=== PATIENT | female | born 1950 | race Caucasian/White ===

== ENCOUNTER 2020-12-25 12:40 | Outpatient (REF) | payer MEDICARE, SELFPAY ==
--- NOTE | ~2020-12-25 | MM_ITS ---
EXAMINATION: MM SCREENING DIGITAL BREAST TOMOSYNTHESIS, BILATERAL CLINICAL INFORMATION: Screening. Asymptomatic. The lifetime risk of breast cancer based on the Tyrer-Cuzick Model is 5.8%. COMPARISON: Mammography: October 12, 2019 and studies dating back to July 14, 2011 TECHNIQUE: Digital breast tomosynthesis is performed in both the craniocaudal and mediolateral oblique views along with computer-aided detection (CAD). Synthesized 2D images are generated from the tomosynthesis. FINDINGS: The breasts are almost entirely fatty (ACR BI-RADS breast composition Category a). There are no significant masses, abnormal calcifications, or other abnormalities. MM/MM tomosynthesis screening BI IMPRESSION: There are no significant changes from prior study. ASSESSMENT: BI-RADS 1: Negative RECOMMENDATION: Routine annual mammography screening. This patient's information was entered into a reminder system with a target due date for their next mammogram.
== END 2020-12-25 12:41 | disposition home or self-care (01) ==
LOC: HO.MAMMO 12:40
PROVIDERS: PCP Internal Medicine; Visit Provider Internal Medicine
DX: Z12.31 Encounter for screening mammogram for malignant neoplasm of breast (principal)
CPT/HCPCS: 77063; 77067

== ENCOUNTER 2021-07-20 09:13 | Outpatient (REF) | payer MEDICARE, SELFPAY ==
[2021-07-20 11:23] LABS: MANUAL DIFF FLAG NO
[2021-07-20 11:37] LABS: Appearance Urine HAZY; Color Urine YELLOW; Glucose Urine UA NEG (NEG); Leukocyte Esterase Urine TRACE (NEG); Nitrite Urine NEG (NEG); Specific Gravity - Urine >= 1.030 (1.005-1.025); UACC Culture Trigger YES; Urine Blood 2+ (NEG); Urine Ketones NEG (NEG); Urine Protein 1+ MG/DL (NEG-TRACE)
[2021-07-20 11:41] LABS: Basophils Percent Auto 0.4 % (0-2); Eosinophils Absolute Auto 0.1 X10*3/uL (0.0-0.4); Imm Gran Abs Auto 0.01 X10*3/uL (0.00-0.03); Imm Gran Pct Auto 0.2 % (0.0-0.4); Lymphocytes Absolute Auto 1.1 X10*3/uL (1.2-4.9); Lymphocytes Percent Auto 23.2 % (20-40); Mean Corpuscular HGB Conc 32.5 g/dl (31.0-35.0); Mean Corpuscular Hemoglobin 28.9 pg (27.0-33.0); Mean Corpuscular Volume 88.9 fL (80-98); Mean Platelet Volume 9.5 fL (9.4-12.3); Monocytes Absolute Auto 0.2 X10*3/uL (0.1-1.2); Monocytes Percent Auto 5.3 % (2-11); Neutrophils Absolute Auto 3.1 X10*3/uL (2.0-8.3); Neutrophils Percent Auto 68.9 % (45-73); Platelet Count 147 X10*3/uL (160-400); Red Cell Distribution Width 12.6 % (11.0-16.0); White Blood Count 4.6 X10*3/uL (4.8-10.8)
[2021-07-20 12:51] LABS: WBC Urine 0-2 /HPF (0-4)
[2021-07-20 12:59] LABS: Bacteria Urine 2+ /LPF; Squamous Epithelial Cell Urine 1+ /LPF
[2021-07-20 14:23] LABS: Alanine Aminotransferase 19 U/L (0-31); Albumin Level 4.6 g/dL (3.5-5.0); Alkaline Phosphatase 74 U/L (39-117); Anion Gap 13 (12-20); Aspartate Amino Transferase 21 U/L (5-31); Bilirubin Total 0.3 mg/dL (0.0-1.0); Blood Urea Nitrogen 17 mg/dL (9-16); Calcium 9.3 mg/dL (8.4-10.2); Carbon Dioxide 27 mmol/L (22-29); Chloride 107 mmol/L (96-108); Cholesterol 155 mg/dL; Estimated Glomerular Filt Rate 53; Glucose Fasting 103 mg/dL (60-99); HDL Cholesterol 51 mg/dL; LDL Cholesterol Calculated 74 mg/dl; Potassium 4.6 mmol/L (3.3-5.1); Sodium 142 mmol/L (135-145); Total Protein 6.8 g/dL (6.5-8.0); Triglycerides 152 mg/dL
[2021-07-20 14:27] LABS: TSH reflex Free T4 2.14 uIU/mL (0.32-4.0)
== END 2021-07-20 09:14 | disposition home or self-care (01) ==
LOC: HO.HMGCLDS 09:13
PROVIDERS: PCP Internal Medicine; Visit Provider Internal Medicine
DX: E78.00 Pure hypercholesterolemia, unspecified (principal); I10 Essential (primary) hypertension
CPT/HCPCS: 36415; 80053; 80061; 81001; 84443; 85025; 87086

== ENCOUNTER 2021-12-30 13:45 | Outpatient (REF) | payer MEDICARE, SELFPAY ==
--- NOTE | ~2021-12-30 | MM_ITS ---
EXAMINATION: MM SCREENING DIGITAL BREAST TOMOSYNTHESIS, BILATERAL CLINICAL INFORMATION: Screening. Asymptomatic. The lifetime risk of breast cancer based on the Tyrer-Cuzick Model is 3%. COMPARISON: Mammography: 12/25/2020, 10/12/2019, 10/06/2018 TECHNIQUE: Digital breast tomosynthesis is performed in both the craniocaudal and mediolateral oblique views along with computer-aided detection (CAD). Synthesized 2D images are generated from the tomosynthesis. Additional left MLO view is provided. FINDINGS: There are scattered areas of fibroglandular density (ACR BI-RADS breast composition Category b). There are no significant masses, abnormal calcifications, or other abnormalities. Parenchymal pattern is similar to prior studies. The axilla and skin contours are unremarkable. There are no significant changes. MM/MM tomosynthesis screening BI IMPRESSION: No mammographic evidence of malignancy. ASSESSMENT: BI-RADS 1: Negative RECOMMENDATION: Routine annual mammography screening. This patient's information was entered into a reminder system with a target due date for their next mammogram.
== END 2021-12-30 13:46 | disposition home or self-care (01) ==
LOC: HO.MAMMO 13:45
PROVIDERS: PCP Internal Medicine; Visit Provider Internal Medicine
DX: Z12.31 Encounter for screening mammogram for malignant neoplasm of breast (principal)
CPT/HCPCS: 77063; 77067

== ENCOUNTER 2022-01-26 09:14 | Outpatient (REF) | payer MEDICARE, SELFPAY ==
[2022-01-26 11:34] LABS: Appearance Urine CLEAR; Color Urine YELLOW; Glucose Urine UA NEG (NEG); Leukocyte Esterase Urine NEG (NEG); Nitrite Urine NEG (NEG); PH 5.5 (5.0-8.0); Specific Gravity - Urine 1.025 (1.005-1.025); UACC Culture Trigger NO; Urine Blood 3+ (NEG); Urine Ketones NEG (NEG); Urine Protein TRACE MG/DL (NEG-TRACE)
[2022-01-26 11:35] LABS: MANUAL DIFF FLAG NO
[2022-01-26 11:42] LABS: Basophils Percent Auto 0.3 % (0-2); Eosinophils Absolute Auto 0.1 X10*3/uL (0.0-0.4); Eosinophils Percent Auto 1.5 % (0-4); Hematocrit 37.8 % (37.0-47.0); Hemoglobin 12.6 g/dl (12.0-16.0); Lymphocytes Absolute Auto 0.9 X10*3/uL (1.2-4.9); Mean Corpuscular HGB Conc 33.3 g/dl (31.0-35.0); Mean Corpuscular Hemoglobin 29.2 pg (27.0-33.0); Mean Corpuscular Volume 87.7 fL (80.0-98.0); Mean Platelet Volume 9.3 fL (9.4-12.3); Monocytes Absolute Auto 0.3 X10*3/uL (0.1-1.2); Monocytes Percent Auto 6.4 % (2-11); Neutrophils Absolute Auto 2.7 x10*3/uL (2.0-8.3); Neutrophils Percent Auto 68.8 % (45-73); Platelet Count 130 X10*3/uL (160-400); Red Blood Count 4.31 X10*6/uL (4.20-5.50); White Blood Count 3.9 X10*3/uL (4.8-10.8)
[2022-01-26 11:44] LABS: Granular Casts Urine 0-2 /LPF; Squamous Epithelial Cell Urine 2+ /LPF; WBC Urine 0 /HPF (0-4)
[2022-01-26 12:13] LABS: Alanine Aminotransferase 19 U/L (0-31); Albumin Level 4.5 g/dL (3.5-5.0); Alkaline Phosphatase 66 U/L (39-117); Anion Gap 11 (12-20); Aspartate Amino Transferase 17 U/L (5-31); Bilirubin Total 0.4 mg/dL (0.0-1.0); Blood Urea Nitrogen 15 mg/dL (9-16); Calcium 9.1 mg/dL (8.4-10.2); Carbon Dioxide 29 mmol/L (22-29); Chloride 108 mmol/L (96-108); Cholesterol 150 mg/dL; Estimated Glomerular Filt Rate 53; Glucose Fasting 102 mg/dL (60-99); HDL Cholesterol 47 mg/dL; LDL Cholesterol Calculated 76 mg/dl; Potassium 4.4 mmol/L (3.3-5.1); Sodium 144 mmol/L (135-145); Total Protein 6.9 g/dL (6.5-8.0); Triglycerides 137 mg/dL
[2022-01-26 12:16] LABS: TSH reflex Free T4 2.39 uIU/mL (0.32-4.0); Vitamin D 25-OH Total 45.7 ng/mL (>30)
== END 2022-01-26 09:15 | disposition home or self-care (01) ==
LOC: HO.HMGCLDS 09:14
PROVIDERS: Visit Provider Internal Medicine
DX: I10 Essential (primary) hypertension (principal); E78.00 Pure hypercholesterolemia, unspecified; E55.9 Vitamin D deficiency, unspecified
CPT/HCPCS: 36415; 80053; 80061; 81001; 82306; 84443; 85025

== ENCOUNTER 2023-01-29 11:55 | Outpatient (REF) | payer MEDICARE, SELFPAY ==
--- NOTE | ~2023-01-29 | XR_ITS ---
EXAMINATION: XR LUMBOSACRAL SPINE WITH OBLIQUES CLINICAL INFORMATION: Low back pain COMPARISON: None available. TECHNIQUE: 5 views lumbar spine FINDINGS: Vertebral body alignment is maintained. Vertebral body heights are maintained. No evidence of acute compression deformity. Moderate-severe L5-S1 disc degeneration with disc height loss, endplate osteophytes. There is endplate spurring at multiple levels in the lumbar spine otherwise. Facet degeneration in the lower lumbar spine. SI joints intact. Visualized pelvic bones intact. Vascular calcification noted. No suspicious soft tissue calcification seen. XR/XR lumbar spine 4V min IMPRESSION: *No evidence of acute fracture or malalignment. *Lumbar spondylosis. L5-S1 moderate-severe disc degeneration.
== END 2023-01-29 11:56 | disposition home or self-care (01) ==
LOC: HO.HMGCX 11:55
PROVIDERS: PCP Internal Medicine; Visit Provider Physician Assistant Medical
DX: M54.50 Low back pain, unspecified (principal)
CPT/HCPCS: 72110

== ENCOUNTER 2023-02-22 10:50 | Outpatient (REF) | payer MEDICARE, SELFPAY ==
--- NOTE | ~2023-02-22 | MM_ITS ---
EXAMINATION: MM SCREENING DIGITAL BREAST TOMOSYNTHESIS, BILATERAL CLINICAL INFORMATION: Screening. Asymptomatic. The lifetime risk of breast cancer based on the Tyrer-Cuzick Model is 2.9%. COMPARISON: Mammography: December 30, 2021 and studies dating back to August 25, 2015 TECHNIQUE: Digital breast tomosynthesis is performed in both the craniocaudal and mediolateral oblique views along with computer-aided detection (CAD). Synthesized 2D images are generated from the tomosynthesis. FINDINGS: There are scattered areas of fibroglandular density (ACR BI-RADS breast composition Category b). There are no significant masses, abnormal calcifications, or other abnormalities. MM/MM tomosynthesis screening BI IMPRESSION: No significant changes from prior exam. ASSESSMENT: BI-RADS 1: Negative RECOMMENDATION: Routine annual mammography screening. This patient's information was entered into a reminder system with a target due date for their next mammogram.
== END 2023-02-22 10:51 | disposition home or self-care (01) ==
LOC: HO.MAMMO 10:50
PROVIDERS: PCP Internal Medicine; Visit Provider Internal Medicine
DX: Z12.31 Encounter for screening mammogram for malignant neoplasm of breast (principal)
CPT/HCPCS: 77063; 77067

== ENCOUNTER → 2023-03-08 14:01 | Outpatient (BNVA) | payer MEDICARE, SELFPAY | PROVIDERS: PCP Internal Medicine; Visit Provider Psychiatry & Neurology Psychiatry | DX: F33.9 Major depressive disorder, recurrent, unspecified (principal); I21.3 ST elevation (STEMI) myocardial infarction of unspecified site; E78.00 Pure hypercholesterolemia, unspecified | CPT/HCPCS: 90833; 99212 ==

== ENCOUNTER 2023-03-15 14:15 | Outpatient (AMB) | payer MEDICARE, SELFPAY ==
--- NOTE | 2023-03-15 14:17 | MHC.PC.OV ---
Vital Signs 03/15/23 14:21 Height 5 ft 3 in Weight 172 lb 8 oz BMI 30.6 BP 142/80 H Blood Pressure Location Lt brachial Position Sitting Pulse 78 Pulse Source Pulse Oximeter Pulse Oximetry (%) 97 Oxygen Delivery Method Room Air Intake Visit Reasons: HTN, CAD, hyperlipidemia, OA Intake Note: Patient is here to follow up HTN, CAD, hyperlipidemia, and OA. 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 Accompanied by: Self / Same As Patient Allergies Sulfa (Sulfonamide Antibiotics) [SULFA(SULFONAMIDE ANTIBIOTICS)] Allergy (Intermediate, Verified 07/19/24 11:34) RASH methazolamide [From NEPTAZANE] Allergy (Unknown, Verified 07/19/24 11:34) RASH Neptazane Allergy (Unknown, Uncoded 07/19/24 11:34) unknown Medication List - Last Reconciled 03/15/23 by Wai Ferrell MD aspirin (Adult Aspirin Regimen) 81 mg PO DAILY buspirone 15 mg PO BID 90 days clopidogrel 75 mg PO DAILY cyclobenzaprine 5 mg PO TID PRN lorazepam 0.5 mg PO BEDTIME PRN losartan 50 mg PO DAILY metoprolol succinate ER 25 mg PO DAILY omeprazole 20 mg PO DAILY oxycodone-acetaminophen 5-325 mg (Percocet) 1 tab PO .q12 PRN 28 days rosuvastatin 40 mg PO DAILY sertraline 200 mg (2 x 100 mg) PO DAILY 90 days trazodone 25 - 50 mg (0.5 - 1 x 50 mg) PO BEDTIME PRN 30 days Tobacco use date assessed: 03/15/23 Fall risk assessment: 1 Fall in past year HPI HTN, CAD, hyperlipidemia, OA HPI Details Patient comes in today for her follow up visit - I have not seen her in over a year (last visit was in December 2021) States that she had her 2nd bout with PERLA back in May 2022 and had to cancel her appointment then Relates also that she went to the walk-in clinic at [facility] last month for increased low back pain She was sent for new x-rays of her lower back and was given Rx for some Cyclobenzaprine 5 mg, which she states helped somewhat States that her low back pain has calmed down a lot since and she just needs her Percocet Rx refilled today She denies any headaches or dizziness Denies any chest pains, no SOB No nausea/vomiting, no abdominal pain No change in bowel habits noted She has not had any follow up labs done in over a year now [facility] Medical History (Updated 07/19/24 @ 14:36 by Wai Ferrell MD) Generalized anxiety disorder Ischemic cardiomyopathy GERD without esophagitis Obesity (BMI 30-39.9) Depression Anxiety Insomnia Primary osteoarthritis of right shoulder Benign essential hypertension Coronary artery disease Osteoarthritis of right shoulder STEMI (ST elevation myocardial infarction) Pure hypercholesterolemia Surgical History (Updated 07/19/24 @ 12:31 by Wai Ferrell MD) History of hysterectomy for malignancy S/P coronary artery stent placement (~07/2016) S/P excision of lipoma (~2000) S/P medial meniscectomy of left knee (~09/2012) Social History Housing: House Alcohol intake: never Patient Tobacco Use Status: Never used Tobacco e-Cigarette/Vaping Use: Never Used Second Hand Smoke Exposure: Yes service: No Current occupational status: retired Cognitive needs: No Hearing needs: No Vision needs: No Questionnaire PHQ-9 Over the last 2 weeks, how often have you been bothered by any of the following problems? 1. Little interest or pleasure in doing things: not at all 2. Feeling down, depressed, or hopeless: not at all 3. Trouble falling or staying asleep, or sleeping too much: not at all 4. Feeling tired or having little energy: not at all 5. Poor appetite or overeating: not at all 6. Feeling bad about yourself - or that you are a failure or have let yourself or your family down: not at all 7. Trouble concentrating on things, such as reading the newspaper or watching television: not at all 8. Moving or speaking so slowly that other people could have noticed. Or the opposite - being so fidgety or restless that you have been moving around a lot more than usual: not at all 9. Thoughts that you would be better off or of hurting yourself in some way: not at all Total score: 0 Depression Screening Interpretation: Positive Depression Screening Follow-up: Existing condition and In treatment 83395 - PHQ-9 Billing: Yes Source: Developed by Drs. Ike Toledo, Colette Gutierrez, Alex Ingram and colleagues, with an educational gumaro from [employer]. Thrive Questionnaire Date Thrive assessed: 03/15/23 I am a: Patient What is your living situation today?: I have a steady place to live Within the past 12 months, did the food you bought not last and you didn't have the money to get more?: Never true Within the past 12 months, did you worry whether your food would run out before you got money to buy more?: Never true Do you have trouble paying for medicines?: No Do you have trouble getting transportation to medical appointments?: No Do you have trouble paying your heating and electricity bill?: No Do you have trouble taking care of your child, family member or friend?: No Do you have trouble with day-to-day activities such as bathing, preparing meals, shopping, managing finances, etc.?: No Are you currently unemployed and looking for a job?: No Are you interested in more education?: No Currently or been in a relationship where the following occur: no concerns reported AUDIT C Alcohol Use Questionnaire (AUDIT-C) 1. How often do you have a drink containing alcohol?: Never 3. How often do you have six or more drinks on one occasion?: Never Total Score: 0 Score Reviewed/Action Taken: Yes MAGUI-7 AMB Questionnaire MAGUI-7 Date MAGUI - 7 assessed: 03/15/23 Feeling nervous, anxious, or on edge: 0 = Not at all Not being able to stop or control worryin = Not at all Worrying too much about different things: 0 = Not at all Trouble relaxin = Not at all Being so restless that it is hard to sit still: 0 = Not at all Becoming easily annoyed or irritable: 0 = Not at all Feeling afraid as if something awful might happen: 0 = Not at all Total MAGUI-7 score (0-4 normal; 5-9 mild; 10-14 moderate; 15-21 severe): 0 Source: Developed by Drs. Ike Toledo, Colette Gutierrez, Alex Ingram and colleagues, with an educational gumaro from [employer]. Review of Systems Const Denies chills, Reports fatigue, Denies fever(s) and Denies headache(s) ENT Denies headache(s), Denies sinus pain and Denies sore throat Card Denies chest pain, Denies palpitations and Denies dyspnea Resp Denies cough and Denies dyspnea GI Denies abdominal pain, Denies constipation, Denies heartburn, Denies diarrhea, Denies nausea and Denies vomiting Denies difficulty voiding, Reports nocturia (- states that she drinks a lot of water) and Denies dysuria Musc Reports back pain (lower back - chronic) and Denies arthralgias Neuro Denies headache(s) Endo Reports fatigue and Denies palpitations Physical exam (Primary Care) Vital Signs: Last Vital Signs Pulse 78 03/15/23 14:21 BP 142/80 H 03/15/23 14:21 Pulse Ox 97 03/15/23 14:21 Oxygen Delivery Method Room Air 03/15/23 14:21 BMI result Body Mass Index 30.6 Tobacco/Smoking Status: Tobacco use Status Tobacco use date assessed 03/15/23 03/15/23 14:20 Patient Tobacco Use Status Never used Tobacco 03/15/23 14:17 e-Cigarette/Vaping Use Never Used 03/15/23 14:20 PHQ-9: PHQ-9 Score PHQ-9: Total score 0 07/04/24 03:51 Depression Screening Interpretation: Positive Depression Screening Follow-up: Existing condition and In treatment Thrive Assessment: Date of Thrive Assessment Date Thrive assessed 03/15/23 03/15/23 14:20 Currently or been in a relationship where the following occur: no concerns reported Const General: no acute distress and alert HENMT Ears: TM's normal bilaterally Throat: Yes posterior oropharynx normal and Yes tonsils normal (no TP congestion noted) Neck Neck: Yes no lymphadenopathy and Yes supple Resp Auscultation: clear to auscultation bilaterally, no rales and no wheezes Cardio Rate: regular rate Rhythm: regular rhythm Heart sounds: Murmur heart sound present systolic soft, II/ and at the left sternal border GI Palpation (GI): Soft to palpation, nontender and No hepatosplenomegaly present Back/Spine/Pelvis Thoracic/Lumbar Spine: lumbar spinal tenderness Extrem General: Yes no clubbing, cyanosis or edema Assessment and Plan Assessment & Plan (1) Coronary artery disease: Comment: S/P STEMI with stenting in July 2016 Code(s): I25.10 - Atherosclerotic heart disease of [place] coronary artery without angina pectoris Qualifiers: Associated angina: without angina Coronary Disease-Associated Artery/Lesion type: [place] artery [place] vs. transplanted heart: [place] heart Qualified Code(s): I25.10 - Atherosclerotic heart disease of [place] coronary artery without angina pectoris Plan: Patient remains asymptomatic Continue Aspirin 81 mg QD and Clopidogrel 75 mg QD Follow up with cardiology as scheduled (2) Pure hypercholesterolemia: Code(s): E78.00 - Pure hypercholesterolemia, unspecified Plan: She has not had any follow up labs done in over a year now - will send her for some labs TERESA Reinforced low cholesterol diet Continue Rosuvastatin 40 mg QD Will recheck labs again in 6 months for follow up (3) Benign essential hypertension: Code(s): I10 - Essential (primary) hypertension Plan: Reinforced low sodium diet - goal is systolic BP of at least 130 mm or less Continue Metoprolol ER 25 mg QD and Losartan 50 mg QD (4) GERD without esophagitis: Code(s): K21.9 - Gastro-esophageal reflux disease without esophagitis Plan: Dietary restrictions reinforced Continue Omeprazole 20 mg QD (5) Primary osteoarthritis of right shoulder: Code(s): M19.011 - Primary osteoarthritis, right shoulder Plan: Continue Percocet 5-325 mg 1 tablet every 12 hours as needed for pain - Rx refilled (6) Lumbar degenerative disc disease: Code(s): M51.36 - Other intervertebral disc degeneration, lumbar region Plan: Patient is advised that her lumbar spine x-rays done last month revealed (+) degenerative changes in her lumbar spine - (+) lumbar spondylosis, with moderate-severe disc degeneration at L5-S1 Reinforced activity and weight-lifting restrictions to avoid aggravating her lower back Advised that her current pain med (Percocet) should also help with her low back pain when needed (7) Insomnia: Code(s): G47.00 - Insomnia, unspecified Qualifiers: Insomnia type: unspecified Qualified Code(s): G47.00 - Insomnia, unspecified Plan: Sleep hygiene reinforced Continue Trazodone 50 mg 1/2 to 1 tablet Q HS PRN (8) Anxiety: Code(s): F41.9 - Anxiety disorder, unspecified Plan: Continue Buspirone 15 mg BID and Lorazepam 0.5 mg Q HS PRN (9) Depression: Comment: sees Dr. Bandar Calderon Code(s): F32.9 - Major depressive disorder, single episode, unspecified Qualifiers: Depression Type: major depressive disorder Major depression recurrence: recurrent Active/Remission status: currently active Major depression episode severity: unspecified Qualified Code(s): F33.9 - Major depressive disorder, recurrent, unspecified Plan: Continue Sertraline 100 mg QD Follow up with psychiatry as scheduled (10) Obesity (BMI 30-39.9): Code(s): E66.9 - Obesity, unspecified Plan: Reinforced diet/exercise as tolerated/lose weight Plan Follow up in 6 months Orders: Orders Complete Blood Count Auto Diff 03/15/23 I10 - Essential (primary) hypertension Comprehensive [place]. Panel Fast 6 Months E78.00 - Pure hypercholesterolemia, unspecified Comprehensive [place]. Panel Fast 03/15/23 E78.00 - Pure hypercholesterolemia, unspecified Lipid Panel 03/15/23 E78.00 - Pure hypercholesterolemia, unspecified TSH reflex Free T4 03/15/23 E78.00 - Pure hypercholesterolemia, unspecified UA CC w/rflx Micro + Cult 03/15/23 R30.0 - Dysuria Vitamin D 25-OH Total 03/15/23 E55.9 - Vitamin D deficiency, unspecified Lipid Panel 6 Months E78.00 - Pure hypercholesterolemia, unspecified Complete Blood Count Auto Diff 6 Months I10 - Essential (primary) hypertension Medications: Refilled oxycodone-acetaminophen 5-325 mg (Percocet) 1 tab PO .q12 PRN 56 tabs 0RF pain 28 days M19.011 - Primary osteoarthritis, right shoulder Coding Level of Care Code Est Pt Level 4 (74269) Diagnoses Coronary artery disease involving [place] coronary artery of [place] heart without angina pectoris I25.10 Associated angina: without angina Coronary Disease-Associated Artery/Lesion type: [place] artery [place] vs. transplanted heart: [place] heart Pure hypercholesterolemia E78.00 Benign essential hypertension I10 GERD without esophagitis K21.9 Primary osteoarthritis of right shoulder M19.011 Lumbar degenerative disc disease M51.36 Insomnia, unspecified type G47.00 Insomnia type: unspecified Anxiety F41.9 Episode of recurrent major depressive disorder, unspecified depression episode severity F33.9 Depression Type: major depressive disorder Major depression recurrence: recurrent Active/Remission status: currently active Major depression episode severity: unspecified Obesity (BMI 30-39.9) E66.9
[2023-03-15 14:21] VITALS: BP 142/80; PULSE 78; O2SAT 97; BMI 30.6
== END 2023-03-15 15:26 | disposition home or self-care (01) ==
LOC: HO.HMGH 14:15
PROVIDERS: PCP Internal Medicine; Visit Provider Internal Medicine
DX: I25.10 Atherosclerotic heart disease of native coronary artery without angina pectoris (principal); E78.00 Pure hypercholesterolemia, unspecified; I10 Essential (primary) hypertension; K21.9 Gastro-esophageal reflux disease without esophagitis; M19.011 Primary osteoarthritis, right shoulder; M51.36 Other intervertebral disc degeneration, lumbar region; G47.00 Insomnia, unspecified; F41.9 Anxiety disorder, unspecified
CPT/HCPCS: 99499

== ENCOUNTER 2023-09-12 11:04 | Outpatient (AMB) | payer MEDICARE, SELFPAY ==
--- NOTE | 2023-09-12 11:05 | A.OFFPC_ITS ---
Intake Visit Reasons: Flu Shot Intake Note: Flu Vaccine given today in office. 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 Accompanied by: Self / Same As Patient Allergies Sulfa (Sulfonamide Antibiotics) [SULFA(SULFONAMIDE ANTIBIOTICS)] Allergy ( Intermediate, Verified 03/06/24 14:51) RASH methazolamide [From NEPTAZANE] Allergy (Unknown, Verified 03/06/24 14:51) RASH Neptazane Allergy (Unknown, Uncoded 03/06/24 14:51) unknown Tobacco use date assessed: 09/12/23 Fall risk assessment: No Falls in past year Last assessed Fall Risk: 09/12/23 Dental Screening Dental Screen Date: 09/12/23 Did you have a dental visit in the last 12 months?: Yes Did you have a dental problem in the last 6 months where you did not have access to dental care?: No Was dental information given to patient?: Patient has dentist HPI Flu Shot HPI Details Patient comes in today mainly to get her flu shot / nurse visit [facility] Medical History Anxiety Benign essential hypertension Coronary artery disease Depression GERD without esophagitis Insomnia Ischemic cardiomyopathy Obesity (BMI 30-39.9) Osteoarthritis of right shoulder Primary osteoarthritis of right shoulder Pure hypercholesterolemia STEMI (ST elevation myocardial infarction) Surgical History S/P coronary artery stent placement (~07/2016) S/P excision of lipoma (~2000) S/P medial meniscectomy of left knee (~09/2012) Social History Housing: House Alcohol intake: never Patient Tobacco Use Status: Never used Tobacco e-Cigarette/Vaping Use: Never Used Second Hand Smoke Exposure: Yes service: No Current occupational status: retired Cognitive needs: No Hearing needs: No Vision needs: No Questionnaire PHQ-9 Over the last 2 weeks, how often have you been bothered by any of the following problems? 1. Little interest or pleasure in doing things: not at all 2. Feeling down, depressed, or hopeless: not at all 3. Trouble falling or staying asleep, or sleeping too much: not at all 4. Feeling tired or having little energy: not at all 5. Poor appetite or overeating: not at all 6. Feeling bad about yourself - or that you are a failure or have let yourself or your family down: not at all 7. Trouble concentrating on things, such as reading the newspaper or watching television: not at all 8. Moving or speaking so slowly that other people could have noticed. Or the opposite - being so fidgety or restless that you have been moving around a lot more than usual: not at all 9. Thoughts that you would be better off or of hurting yourself in some way: not at all Total score: 0 Depression Screening Interpretation: Positive Depression Screening Follow-up: Existing condition and In treatment Depression Screening Done: Yes 43294 - PHQ-9 Billing: Yes Source: Developed by Drs. Ike Toledo, Colette Gutierrez, Alex Ingram and colleagues, with an educational gumaro from [employer]. Thrive Questionnaire Date Thrive assessed: 09/12/23 I am a: Patient What is your living situation today?: I have a steady place to live Within the past 12 months, did the food you bought not last and you didn't have the money to get more?: Never true Within the past 12 months, did you worry whether your food would run out before you got money to buy more?: Never true Do you have trouble paying for medicines?: No Do you have trouble getting transportation to medical appointments?: No Do you have trouble paying your heating and electricity bill?: No Do you have trouble taking care of your child, family member or friend?: No Do you have trouble with day-to-day activities such as bathing, preparing meals, shopping, managing finances, etc.?: No Are you currently unemployed and looking for a job?: No Are you interested in more education?: No Please select the resources that you would like help with: None Currently or been in a relationship where the following occur: no concerns reported AUDIT C Alcohol Use Questionnaire (AUDIT-C) 1. How often do you have a drink containing alcohol?: Never 3. How often do you have six or more drinks on one occasion?: Never Total Score: 0 Score Reviewed/Action Taken: Yes MAGUI-7 AMB Questionnaire MAGUI-7 Date MAGUI - 7 assessed: 09/12/23 Feeling nervous, anxious, or on edge: 0 = Not at all Not being able to stop or control worryin = Not at all Worrying too much about different things: 0 = Not at all Trouble relaxin = Not at all Being so restless that it is hard to sit still: 0 = Not at all Becoming easily annoyed or irritable: 0 = Not at all Feeling afraid as if something awful might happen: 0 = Not at all Total MAGUI-7 score (0-4 normal; 5-9 mild; 10-14 moderate; 15-21 severe): 0 Source: Developed by Drs. Ike Toledo, Colette Gutierrez, Alex Ingram and colleagues, with an educational gumaro from [employer]. Physical exam (Primary Care) Tobacco/Smoking Status: Tobacco use Status Tobacco use date assessed 09/12/23 09/12/23 11:06 Patient Tobacco Use Status Never used Tobacco 09/12/23 11:06 e-Cigarette/Vaping Use Never Used 09/12/23 11:06 PHQ-9: PHQ-9 Score PHQ-9: Total score 0 09/12/23 11:13 Depression Screening Interpretation: Positive Depression Screening Follow-up: Existing condition and In treatment Thrive Assessment: Date of Thrive Assessment Date Thrive assessed 09/12/23 09/12/23 11:06 Currently or been in a relationship where the following occur: no concerns reported Office Procedures Flu Questionnaire Does the patient have a severe egg allergy?: No Does the patient have severe life threatening allergies?: No Does the patient have a fever or illness today?: No Has the patient ever had Guillain-[place] Syndrome?: No Has the patient ever had any past reaction to a flu shot?: No Immunizations flu vacc [id number] 6mos up(PF) 60 mcg(15 mcgx4)/0.5 mL IM syringe Performing Provider: Wai Ferrell MD [facility] Administered by: DEVAUGHN Mei on 09/12/23 11:07 Dose Route Admin Location Dispensed Lot Number Expiration Date NDC Barking Machine Feeder 0.5 mL IM Left Deltoid 0.5 mL [id number] 04/29/24 [id number] [employer] VIS Given Date VIS Provided VIS Publication Date 09/12/23 Single Vaccine 21 Eligibility Eligibility Date Funding Source Not [facility] Eligible 09/12/23 Private Assessment and Plan Assessment & Plan Orders: Orders Influenza [id number] Immunization 09/12/23 Z23 - Encounter for immunization Coding Level of Care Code Procedure Only
== END 2023-09-12 13:05 | disposition home or self-care (01) ==
LOC: HO.HMGH 11:04
PROVIDERS: PCP Internal Medicine; Visit Provider Internal Medicine
DX: Z23 Encounter for immunization (principal)
CPT/HCPCS: 90471; 90686

== ENCOUNTER 2024-02-28 14:25 | Outpatient (REF) | payer MEDICARE, SELFPAY ==
--- NOTE | ~2024-02-28 | US_ITS ---
EXAMINATION: US PELVIS CLINICAL INFORMATION: Postmenopausal bleeding. COMPARISON: None available. TECHNIQUE: Ultrasound of the pelvis is performed using both transabdominal and transvaginal transducers along with Doppler. Transvaginal imaging is performed due to inadequate visualization transabdominally. FINDINGS: Uterus: The uterus measures 6.3 x 2.9 x 4.3 cm. There is focal abnormal thickening of the endometrium in the fundus measuring 7 mm. There is a 9 mm well-circumscribed avascular hypoechoic lesion in the right lower uterine segment which could be a small fibroid. Adnexa: The right ovary measures 2.2 x 1.1 x 1.2 cm, volume 2 mL. The right ovary appears normal. The left ovary is not seen. No free fluid. US/US pelvic and transvaginal IMPRESSION: Focal abnormal thickening of the fundal endometrium measuring 7 mm which may represent a polyp. Recommend gynecology referral for endometrial biopsy. 9 mm lesion in the right lower uterine fundus may represent a small fibroid.
== END 2024-02-28 14:26 | disposition home or self-care (01) ==
LOC: HO.US 14:25
PROVIDERS: PCP Internal Medicine; Visit Provider Internal Medicine
DX: N95.0 Postmenopausal bleeding (principal)
CPT/HCPCS: 76830; 76856

== ENCOUNTER 2024-03-06 14:50 | Outpatient (AMB) | payer MEDICARE, SELFPAY ==
[2024-03-06 14:51] VITALS: BP 130/62; PULSE 65; O2SAT 97; BMI 30.8
--- NOTE | 2024-03-06 14:51 | MHC.PC.OV ---
Vital Signs 03/06/24 14:51 Height 5 ft 3 in Weight 174 lb BMI 30.8 BP 130/62 Blood Pressure Location Lt brachial Position Sitting Pulse 65 Pulse Source Pulse Oximeter Pulse Oximetry (%) 97 Oxygen Delivery Method Room Air Intake Visit Reasons: CAD, hyperlipidemia, HTN, lumbar DDD Intake Note: Patient is here to follow up on CAD, Hyperlipidemia, HTN, lumbar DDD Branch Operations Manager Required: No Allergies Sulfa (Sulfonamide Antibiotics) [SULFA(SULFONAMIDE ANTIBIOTICS)] Allergy (Intermediate, Verified 03/06/24 15:25) RASH methazolamide [From NEPTAZANE] Allergy (Unknown, Verified 03/06/24 15:25) RASH Neptazane Allergy (Unknown, Uncoded 03/06/24 15:25) unknown Medication List - Last Reconciled 03/06/24 by Wai Ferrell MD aspirin (Adult Aspirin Regimen) 81 mg PO DAILY buspirone 15 mg PO BID 90 days clopidogrel 75 mg PO DAILY cyclobenzaprine 5 mg PO TID PRN lorazepam 0.5 mg PO BEDTIME PRN losartan 50 mg PO DAILY metoprolol succinate ER 25 mg PO DAILY omeprazole 20 mg PO DAILY oxycodone-acetaminophen 5-325 mg (Percocet) 1 tab PO Q12H PRN 28 days rosuvastatin 40 mg PO DAILY sertraline 200 mg (2 x 100 mg) PO DAILY 90 days trazodone 25 - 50 mg (0.5 - 1 x 50 mg) PO BEDTIME PRN 30 days Tobacco use date assessed: 03/06/24 Fall risk assessment: No Falls in past year Last assessed Fall Risk: 03/06/24 Dental Screening Dental Screen Date: 09/12/23 HPI CAD, hyperlipidemia, HTN, lumbar DDD HPI Details Patient comes in today for her follow up visit - was last seen in February 2023 She has not had any follow up labs done since December 2021 States that she is still feeling sad and depressed often, which started when her at the hospital a couple of months ago She called up a couple of weeks ago complaining of some vaginal bleeding and was sent for pelvic US for further evaluation States that she had this done last week and would like to know how her results came out States that she currently just has a mild brownish discharge and no longer has any vaginal bleeding She denies any fever, headaches or dizziness Denies any chest pains, no SOB No nausea/vomiting, no abdominal pain No change in bowel habits noted States that her low back pain and joint pains remain adequately controlled on her current Rx [facility] Medical History Anxiety Benign essential hypertension Coronary artery disease Depression GERD without esophagitis Insomnia Ischemic cardiomyopathy Obesity (BMI 30-39.9) Osteoarthritis of right shoulder Primary osteoarthritis of right shoulder Pure hypercholesterolemia STEMI (ST elevation myocardial infarction) Surgical History S/P coronary artery stent placement (~07/2016) S/P excision of lipoma (~2000) S/P medial meniscectomy of left knee (~09/2012) Social History Housing: House Alcohol intake: never Patient Tobacco Use Status: Never used Tobacco e-Cigarette/Vaping Use: Never Used Second Hand Smoke Exposure: Yes service: No Current occupational status: retired Cognitive needs: No Hearing needs: No Vision needs: No Questionnaire PHQ-9 Over the last 2 weeks, how often have you been bothered by any of the following problems? 1. Little interest or pleasure in doing things: not at all 2. Feeling down, depressed, or hopeless: not at all 3. Trouble falling or staying asleep, or sleeping too much: not at all 4. Feeling tired or having little energy: not at all 5. Poor appetite or overeating: not at all 6. Feeling bad about yourself - or that you are a failure or have let yourself or your family down: not at all 7. Trouble concentrating on things, such as reading the newspaper or watching television: not at all 8. Moving or speaking so slowly that other people could have noticed. Or the opposite - being so fidgety or restless that you have been moving around a lot more than usual: not at all 9. Thoughts that you would be better off or of hurting yourself in some way: not at all Total score: 0 Depression Screening Interpretation: Positive Depression Screening Follow-up: Existing condition and In treatment Depression Screening Done: Yes 23781 - PHQ-9 Billing: Yes Source: Developed by Drs. Ike Toledo, Colette Gutierrez, Alex Ingram and colleagues, with an educational gumaro from [employer] ([employer]). Thrive Questionnaire Date Thrive assessed: 03/06/24 I am a: Patient What is your living situation today?: I have a steady place to live Within the past 12 months, did the food you bought not last and you didn't have the money to get more?: Never true Within the past 12 months, did you worry whether your food would run out before you got money to buy more?: Never true Do you have trouble paying for medicines?: No Do you have trouble getting transportation to medical appointments?: No Do you have trouble paying your heating and electricity bill?: No Do you have trouble taking care of your child, family member or friend?: No Do you have trouble with day-to-day activities such as bathing, preparing meals, shopping, managing finances, etc.?: No Are you currently unemployed and looking for a job?: No Are you interested in more education?: No Please select the resources that you would like help with: None Currently or been in a relationship where the following occur: no concerns reported THRIVE Score: 0 AUDIT C Alcohol Use Questionnaire (AUDIT-C) 1. How often do you have a drink containing alcohol?: Never 3. How often do you have six or more drinks on one occasion?: Never Total Score: 0 Score Reviewed/Action Taken: Yes MAGUI-7 AMB Questionnaire MAGUI-7 Date MAGUI - 7 assessed: 03/06/24 Feeling nervous, anxious, or on edge: 0 = Not at all Not being able to stop or control worryin = Not at all Worrying too much about different things: 0 = Not at all Trouble relaxin = Not at all Being so restless that it is hard to sit still: 0 = Not at all Becoming easily annoyed or irritable: 0 = Not at all Feeling afraid as if something awful might happen: 0 = Not at all Total MAGUI-7 score (0-4 normal; 5-9 mild; 10-14 moderate; 15-21 severe): 0 Source: Developed by Colette Barksdale, Alex Ingram and colleagues, with an educational gumaro from [employer] ([employer]). Review of Systems Const Denies chills, Reports fatigue, Denies fever(s) and Denies headache(s) ENT Denies dysphagia, Denies dizziness, Denies otalgia, Denies headache(s), Denies neck pain, Denies odynophagia and Denies sore throat Card Denies chest pain, Denies palpitations and Denies dyspnea Resp Denies cough and Denies dyspnea GI Denies abdominal pain, Denies constipation, Denies dysphagia, Denies heartburn, Denies diarrhea, Denies nausea, Denies odynophagia and Denies vomiting Reports as per HPI, Reports abnormal vaginal bleeding (but this has stopped recently), Denies difficulty voiding, Reports nocturia (- states that she drinks a lot of water), Denies dysuria and Reports vaginal discharge Musc Reports back pain (lower back - chronic), Reports arthralgias (right shoulder) and Denies neck pain Neuro Denies dizziness and Denies headache(s) Endo Reports fatigue and Denies palpitations Physical exam (Primary Care) Vital Signs: Last Vital Signs Pulse 65 03/06/24 14:51 BP 130/62 03/06/24 14:51 Pulse Ox 97 03/06/24 14:51 Oxygen Delivery Method Room Air 03/06/24 14:51 BMI result Body Mass Index 30.8 Tobacco/Smoking Status: Tobacco use Status Tobacco use date assessed 03/06/24 03/06/24 14:52 Patient Tobacco Use Status Never used Tobacco 03/06/24 14:52 e-Cigarette/Vaping Use Never Used 03/06/24 14:52 PHQ-9: PHQ-9 Score PHQ-9: Total score 0 03/06/24 15:26 Depression Screening Interpretation: Positive Depression Screening Follow-up: Existing condition and In treatment Thrive Assessment: Date of Thrive Assessment Date Thrive assessed 03/06/24 03/06/24 14:52 Currently or been in a relationship where the following occur: no concerns reported Const General: no acute distress and alert HENMT Ears: TM's normal bilaterally and EAC's normal Throat: Yes posterior oropharynx normal and Yes tonsils normal (no TP congestion noted) Neck Neck: Yes no lymphadenopathy and Yes supple Thyroid: Thyroid normal Resp Auscultation: clear to auscultation bilaterally, no rales and no wheezes Cardio Rate: regular rate Rhythm: regular rhythm Heart sounds: Murmur heart sound present systolic soft, II/ and at the left sternal border GI Palpation (GI): Soft to palpation and nontender Auscultation: normal bowel sounds General: Yes no CVA tenderness Back/Spine/Pelvis Back: no CVA tenderness Thoracic/Lumbar Spine: lumbar spinal tenderness Skin Rashes: no rashes Extrem General: Yes no clubbing, cyanosis or edema Right upper extremity: shoulder/upper arm Details: tenderness Location: of the A-C joint Assessment and Plan Assessment & Plan (1) Endometrial thickening on ultrasound: Code(s): R93.89 - Abnormal findings on diagnostic imaging of other specified body structures Plan: Results of her pelvic US done last week reviewed and discussed with patient Have advised her that she needs to have endometrial Bx done to help r/o uterine or endometrial cancer Have offered to refer her to gynecologic oncology in [place] but patient states that she rarely goes to [place] so is not familiar with how to get there and prefers to stay local Will refer her for now to gynecology here at [facility] for further evaluation and consideration for endometrial Bx (2) Coronary artery disease: Comment: S/P STEMI with stenting in July 2016 Code(s): I25.10 - Atherosclerotic heart disease of [place] coronary artery without angina pectoris Qualifiers: Coronary Disease-Associated Artery/Lesion type: [place] artery [place] vs. transplanted heart: [place] heart Associated angina: without angina Qualified Code(s): I25.10 - Atherosclerotic heart disease of [place] coronary artery without angina pectoris Plan: Patient remains asymptomatic Continue Aspirin 81 mg QD and Clopidogrel 75 mg QD Follow up with cardiology as scheduled (3) Pure hypercholesterolemia: Code(s): E78.00 - Pure hypercholesterolemia, unspecified Plan: Patient has not had any follow up labs done since 2021 and is advised to get them done TERES[facility] - labs reordered Reinforced low cholesterol diet Continue Rosuvastatin 40 mg QD Will recheck recheck her labs and fasting lipids in 4 months for follow up (4) Benign essential hypertension: Code(s): I10 - Essential (primary) hypertension Plan: Reinforced low sodium diet - goal is systolic BP of at least 130 mm or less Continue Metoprolol ER 25 mg QD and Losartan 50 mg QD (5) GERD without esophagitis: Code(s): K21.9 - Gastro-esophageal reflux disease without esophagitis Plan: Dietary restrictions reinforced Continue Omeprazole 20 mg QD (6) Primary osteoarthritis of right shoulder: Code(s): M19.011 - Primary osteoarthritis, right shoulder Plan: Continue Percocet 5-325 mg 1 tablet every 12 hours as needed for pain (7) Insomnia: Code(s): G47.00 - Insomnia, unspecified Qualifiers: Insomnia type: unspecified Qualified Code(s): G47.00 - Insomnia, unspecified Plan: Sleep hygiene reinforced Continue Trazodone 50 mg 1/2 to 1 tablet Q HS PRN (8) Anxiety: Code(s): F41.9 - Anxiety disorder, unspecified Plan: Continue Buspirone 15 mg BID and Lorazepam 0.5 mg Q HS PRN (9) Depression: Comment: sees Dr. Bandar Calderon Code(s): F32.9 - Major depressive disorder, single episode, unspecified Qualifiers: Depression Type: major depressive disorder Major depression recurrence: recurrent Active/Remission status: currently active Major depression episode severity: unspecified Qualified Code(s): F33.9 - Major depressive disorder, recurrent, unspecified Plan: Continue Sertraline 100 mg QD (10) Obesity (BMI 30-39.9): Code(s): E66.9 - Obesity, unspecified Plan: Reinforced diet/exercise as tolerated/lose weight Plan Follow up in 4 months Orders: Orders Lipid Panel 03/06/24 E78.00 - Pure hypercholesterolemia, unspecified Comprehensive [place]. Panel Fast 4 Months E78.00 - Pure hypercholesterolemia, unspecified Lipid Panel 4 Months E78.00 - Pure hypercholesterolemia, unspecified Complete Blood Count Auto Diff 03/06/24 D64.9 - Anemia, unspecified Comprehensive [place]. Panel Fast 03/06/24 E78.00 - Pure hypercholesterolemia, unspecified TSH reflex Free T4 03/06/24 E78.00 - Pure hypercholesterolemia, unspecified UA CC w/rflx Micro + Cult 03/06/24 R30.0 - Dysuria Vitamin D 25-OH Total 03/06/24 E55.9 - Vitamin D deficiency, unspecified Referrals FLEET TECHNICIAN Referral N95.0 - Postmenopausal bleeding, R93.89 - Abnormal findings on diagnostic imaging of other specified body structures Coding Level of Care Code Est Pt Level 4 (04208) Diagnoses Endometrial thickening on ultrasound R93.89 Coronary artery disease involving [place] coronary artery of [place] heart without angina pectoris I25.10 Coronary Disease-Associated Artery/Lesion type: [place] artery [place] vs. transplanted heart: [place] heart Associated angina: without angina Pure hypercholesterolemia E78.00 Benign essential hypertension I10 GERD without esophagitis K21.9 Primary osteoarthritis of right shoulder M19.011 Insomnia, unspecified type G47.00 Insomnia type: unspecified Anxiety F41.9 Episode of recurrent major depressive disorder, unspecified depression episode severity F33.9 Depression Type: major depressive disorder Major depression recurrence: recurrent Active/Remission status: currently active Major depression episode severity: unspecified Obesity (BMI 30-39.9) E66.9
== END 2024-03-06 15:41 | disposition home or self-care (01) ==
PROVIDERS: PCP Internal Medicine; Visit Provider Internal Medicine
DX: I10 Essential (primary) hypertension (principal); F33.9 Major depressive disorder, recurrent, unspecified; R93.89 Abnormal findings on diagnostic imaging of other specified body structures; I25.10 Atherosclerotic heart disease of native coronary artery without angina pectoris; E78.00 Pure hypercholesterolemia, unspecified; K21.9 Gastro-esophageal reflux disease without esophagitis; M19.011 Primary osteoarthritis, right shoulder; G47.00 Insomnia, unspecified; F41.9 Anxiety disorder, unspecified; E66.9 Obesity, unspecified
CPT/HCPCS: 99214

== ENCOUNTER 2024-03-28 11:47 | Outpatient (AMB) | payer MEDICARE, SELFPAY ==
[2024-03-28 12:00] VITALS: BP 124/70; BMI 30.5
--- NOTE | 2024-03-28 12:00 | MHC.OFFVIS ---
Vital Signs 03/28/24 12:00 Height 5 ft 3 in Weight 171 lb 15.369 oz BMI 30.5 BP 124/70 Intake Visit Reasons: New patient PMB Undergraduate Internship Required: No Information Interpreted: non-clinical & clinical Occupational Health Technician: Occupational Health Technician Present (Dora Goode NARESHShira) Accompanied by: Self / Same As Patient Allergies Sulfa (Sulfonamide Antibiotics) [SULFA(SULFONAMIDE ANTIBIOTICS)] Allergy (Intermediate, Verified 03/28/24 12:07) RASH methazolamide [From NEPTAZANE] Allergy (Unknown, Verified 03/28/24 12:07) RASH Neptazane Allergy (Unknown, Uncoded 03/28/24 12:07) unknown Post menopausal: Yes HPI Comments Details: Presenting complaining of recurrent vaginal bleeding since October 2023. Pelvic ultrasound showed the following: Uterus: The uterus measures 6.3 x 2.9 x 4.3 cm. There is focal abnormal thickening of the endometrium in the fundus measuring 7 mm. There is a 9 mm well-circumscribed avascular hypoechoic lesion in the right lower uterine segment which could be a small fibroid. Adnexa: The right ovary measures 2.2 x 1.1 x 1.2 cm, volume 2 mL. The right ovary appears normal. The left ovary is not seen. No free fluid. [facility] Medical History Ischemic cardiomyopathy GERD without esophagitis Obesity (BMI 30-39.9) Depression Anxiety Insomnia Primary osteoarthritis of right shoulder Benign essential hypertension Coronary artery disease Osteoarthritis of right shoulder STEMI (ST elevation myocardial infarction) Pure hypercholesterolemia Surgical History S/P coronary artery stent placement (~07/2016) S/P excision of lipoma (~2000) S/P medial meniscectomy of left knee (~09/2012) Social History Housing: House Alcohol intake: never Patient Tobacco Use Status: Never used Tobacco e-Cigarette/Vaping Use: Never Used Second Hand Smoke Exposure: Yes service: No Current occupational status: retired Cognitive needs: No Hearing needs: No Vision needs: No Review of Systems Const All systems reviewed & are unremarkable except as noted in HPI and below Physical Exam Vital Signs: Last Vital Signs BP 124/70 03/28/24 12:00 BMI result Body Mass Index 30.5 General: Yes no CVA tenderness External Female Exam: normal external appearance and normal appearance of the urethra Speculum Exam - Vagina: normal appearance of the vagina, normal palpation, no lesions and no masses Speculum Exam - Cervix: normal appearance of the cervix, normal palpation, no lesions, no masses and nontender Bimanual exam- vagina & uterus: normal bimanual exam, normal palpation, uterine size normal, normal palpation, uterine shape normal, No Cervical tenderness present and non-tender Bimanual Exam- Adnexa, other: normal adnexae Back/Spine/Pelvis Back: no CVA tenderness Office Procedures Endometrial Biopsy Details: The patient was counseled regarding the indication and benefits of endometrial sampling to rule out endometrial pathology including not limited to endometrial hyperplasia or endometrial cancer and others; The alternatives (Either do nothing vs. hysteroscopy D&C) & the risks were discussed with the patient including but not limited: pain, uterine perforation, bleeding, infection, possible injury to bladder, bowel, ureter, possible need for blood transfusion with all its possible risks. The patient verbalized understanding all questions answered and signed consent. The patient was placed into the dorsal lithotomy position; a speculum was inserted in the vagina. Using aseptic technique for the procedure, the cervix was cleansed with Betadine. The anterior lip of the cervix was grasped with a single tooth tenaculum. The uterus was sounded to 6 cm with a 4 mm Pipelle was used. Tissues samples were obtained and placed in formalin, in a patient labeled container and sent to the pathology department. At the end of the procedure, there was minimal bleeding noted The patient tolerated the procedure well and was discharged in good condition with the following instructions: Nothing in the vagina until the bleeding stops. No sex until the bleeding stops, to call if any of the following occurs: fever (>100.4), flu-like symptoms, abdominal pain, heavy bleeding, four smelling vaginal discharge. The patient was instructed to schedule a Follow up appointment in 2 weeks to discuss pathology results of the biopsy and treatment options. This note was generated with a voice recognition program. Some errors may have been overlooked during the review of this note. Sometimes these errors may affect the content or meaning of a given sentence. [id number] Biopsy Assessment & Plan Assessment & Plan (1) Postmenopausal vaginal bleeding: Comment: Endometrial thickening by ultrasound Code(s): N95.0 - Postmenopausal bleeding Category: Medical Plan: Discussed with the patient the pelvic ultrasound findings, the endometrial stripe thickenss measured by ultrasound was more than 4mm and possibility of polyp. The negative predictive value, positive predictive value, Sensitivity, specificity of using ultrasound measurement of endometrial stripe to detecting endometrial pathology including hyperplasia , polyp or cancer were discussed with the patient. Recommended to the patient that the next step is an endometrial sampling via hysteroscopy D&C possible polypectomy versus endometrial biopsy to r/o endometrial pathology including hyperplasia or cancer. All the pros and cons risks and benefits of each approach were discussed with the patient, endometrial biopsy being less invasive, office procedure with less sensitivity and inability diagnose a polyp and removal versus hysteroscopy done under anesthesia more invasive more sensitive to endometrial cancer and possibility of diagnosing and endometrial polyp with the possibility of polypectomy. All questions were answered pt verbalized understanding and decided to proceed with endometrial biopsy. EMB done, see procedure note Orders: Orders Pap Smear Today N95.0 - Postmenopausal bleeding, R93.89 - Abnormal findings on diagnostic imaging of other specified body structures Surgical Today N95.0 - Postmenopausal bleeding, R93.89 - Abnormal findings on diagnostic imaging of other specified body structures AMB Endometrial Biopsy Today N95.0 - Postmenopausal bleeding Coding Level of Care Code New Pt Level 3 (67493) Procedure Only Diagnoses Postmenopausal vaginal bleeding N95.0 CPT Codes Endometrial Biopsy - CPT: 85102-Ghzqqycwjny Biopsy ([id number])
== END 2024-03-28 13:05 | disposition home or self-care (01) ==
PROVIDERS: PCP Internal Medicine; Visit Provider Obstetrics & Gynecology
DX: N95.0 Postmenopausal bleeding (principal)
CPT/HCPCS: 58100; 99203

== ENCOUNTER 2024-03-28 11:47 | Outpatient (REF) | payer MEDICARE, SELFPAY ==
[2024-04-05 07:59] LABS: HPV mRNA E6/E7 rflx Not Detected (Not Detected)
== END 2024-03-28 11:48 | disposition home or self-care (01) ==
LOC: HO.LNP 11:47
PROVIDERS: Pathology Cytopathology; PCP Internal Medicine; Visit Provider Obstetrics & Gynecology
DX: Z12.4 Encounter for screening for malignant neoplasm of cervix (principal); Z11.51 Encounter for screening for human papillomavirus (HPV); R93.89 Abnormal findings on diagnostic imaging of other specified body structures; N95.0 Postmenopausal bleeding
CPT/HCPCS: 58100; 81288; 87624; 88142; 88305; 88341; 88342; 88360; 99202

== ENCOUNTER 2024-04-03 14:34 | Outpatient (AMB) | payer MEDICARE, SELFPAY ==
--- NOTE | 2024-04-03 14:45 | MHC.OFFVIS ---
Vital Signs 04/03/24 14:50 Height 5 ft 3 in Weight 171 lb 15.369 oz BMI 30.5 BP 110/66 Intake Visit Reasons: emb results per Faustino Putty Tinter Maker Required: No Information Interpreted: non-clinical & clinical Accompanied by: Self / Same As Patient Allergies Sulfa (Sulfonamide Antibiotics) [SULFA(SULFONAMIDE ANTIBIOTICS)] Allergy (Intermediate, Verified 04/03/24 14:51) RASH methazolamide [From NEPTAZANE] Allergy (Unknown, Verified 04/03/24 14:51) RASH Neptazane Allergy (Unknown, Uncoded 04/03/24 14:51) unknown Post menopausal: Yes HPI Comments Details: The patient is presenting after endometrial biopsy. The patient has no complaints,no feverishness chills or abdominal pain. The endometrial biopsy pathology report showed the following: Endometrium, biopsy: Endometrial adenocarcinoma, endometrioid type, FIGO grade 2. Comment: Ancillary testing will be addended [facility] Medical History Ischemic cardiomyopathy GERD without esophagitis Obesity (BMI 30-39.9) Depression Anxiety Insomnia Primary osteoarthritis of right shoulder Benign essential hypertension Coronary artery disease Osteoarthritis of right shoulder STEMI (ST elevation myocardial infarction) Pure hypercholesterolemia Surgical History S/P coronary artery stent placement (~07/2016) S/P excision of lipoma (~2000) S/P medial meniscectomy of left knee (~09/2012) Social History Housing: House Alcohol intake: never Patient Tobacco Use Status: Never used Tobacco e-Cigarette/Vaping Use: Never Used Second Hand Smoke Exposure: Yes service: No Current occupational status: retired Cognitive needs: No Hearing needs: No Vision needs: No Assessment & Plan Assessment & Plan (1) Endometrial adenocarcinoma: Comment: FIGO 2 Code(s): C54.1 - Malignant neoplasm of endometrium Category: Medical Plan: CT scan of abdomen and pelvis with IV and oral contrast, CA 125 and chest x-ray ordered. Discussed with the patient the pathology results, the recommended surgical staging procedure, and the prognosis. The patient was referred to [facility] Scientist Onc. Appointment scheduled on 04/13/24 at [address] masters, the patient and her son Sunny (was on the phone during the visit) are aware. All questions answered, the patient verbalized understanding. Orders: Orders CT abdomen pelvis wo/w IV con Today C54.1 - Malignant neoplasm of endometrium CA-125 Today C54.1 - Malignant neoplasm of endometrium Blood Urea Nitrogen Today C54.1 - Malignant neoplasm of endometrium XR chest 2V Today C54.1 - Malignant neoplasm of endometrium Creatinine Today C54.1 - Malignant neoplasm of endometrium Referrals Gynecologic Oncology Referral C54.1 - Malignant neoplasm of endometrium Coding Level of Care Code Est Pt Level 3 (82172) Diagnoses Endometrial adenocarcinoma C54.1
[2024-04-03 14:50] VITALS: BP 110/66; BMI 30.5
== END 2024-04-04 10:21 | disposition home or self-care (01) ==
PROVIDERS: PCP Internal Medicine; Visit Provider Obstetrics & Gynecology
DX: C54.1 Malignant neoplasm of endometrium (principal)
CPT/HCPCS: 99213

== ENCOUNTER 2024-04-03 14:34 | Outpatient (REF) | payer MEDICARE, SELFPAY ==
--- NOTE | ~2024-04-03 | XR_ITS ---
EXAMINATION: XR CHEST CLINICAL INFORMATION: Malignant neoplasm of the endometrium COMPARISON: November 21, 2018 TECHNIQUE: 2 views of the chest were obtained. FINDINGS: There is no gross pneumothorax. Heart size is normal. No pleural effusion. A few linear retrocardiac opacities may represent atelectasis/scar and less likely an infectious/inflammatory process. XR/XR chest 2V IMPRESSION: A few linear retrocardiac opacities may represent atelectasis/scar and less likely an infectious/inflammatory process.
[2024-04-03 15:45] LABS: MANUAL DIFF FLAG NO
[2024-04-03 16:39] LABS: Basophils Percent Auto 0.4 % (0-2); Eosinophils Absolute Auto 0.1 X10*3/uL (0.0-0.4); Eosinophils Percent Auto 0.9 % (0-4); Hematocrit 38.1 % (37.0-47.0); Hemoglobin 13.2 g/dl (12.0-16.0); Imm Gran Abs Auto 0.01 X10*3/uL (0.00-0.03); Imm Gran Pct Auto 0.2 % (0.0-0.4); Lymphocytes Absolute Auto 0.8 X10*3/uL (1.2-4.9); Lymphocytes Percent Auto 14.1 % (20-40); Mean Corpuscular HGB Conc 34.6 g/dl (31.0-35.0); Mean Corpuscular Volume 86.6 fL (80.0-98.0); Mean Platelet Volume 9.3 fL (9.4-12.3); Monocytes Absolute Auto 0.4 X10*3/uL (0.1-1.2); Monocytes Percent Auto 6.4 % (2-11); Neutrophils Absolute Auto 4.3 x10*3/uL (2.0-8.3); Platelet Count 148 X10*3/uL (160-400); Red Cell Distribution Width 13.2 % (11.0-16.0); White Blood Count 5.5 X10*3/uL (4.8-10.8)
[2024-04-03 17:20] LABS: Blood Urea Nitrogen 19 mg/dL (9-16)
[2024-04-03 17:27] LABS: Alanine Aminotransferase 26 U/L (0-31); Albumin Level 4.6 g/dL (3.5-5.0); Alkaline Phosphatase 77 U/L (39-117); Anion Gap 15 (12-20); Aspartate Amino Transferase 29 U/L (5-31); Bilirubin Total 0.5 mg/dL (0.0-1.0); Blood Urea Nitrogen 19 mg/dL (9-16); Calcium 9.9 mg/dL (8.4-10.2); Carbon Dioxide 26 mmol/L (22-29); Chloride 104 mmol/L (96-108); Cholesterol 151 mg/dL (<200); Estimated Glomerular Filt Rate 51; Glucose Fasting 109 mg/dL (60-99); HDL Cholesterol 42 mg/dL (>40); LDL Cholesterol Calculated 56 mg/dL (<100); Potassium 4.2 mmol/L (3.3-5.1); Sodium 141 mmol/L (135-145); Total Protein 7.5 g/dL (6.5-8.0); Triglycerides 265 mg/dL (<150)
[2024-04-03 17:43] LABS: TSH reflex Free T4 1.74 uIU/mL (0.32-4.0); Vitamin D 25-OH Total 83.3 ng/mL (>30)
[2024-04-03 17:53] LABS: Appearance Urine Cloudy; Color Urine Yellow; Glucose Urine UA Negative (Negative); Leukocyte Esterase Urine Moderate (2+) (Negative); Nitrite Urine Negative (Negative); UMIC TRIGGER UACC YES; Urine Blood Small (1+) (Negative); Urine Ketones Trace mg/dL (Negative); Urine Protein Trace mg/dL (Neg-Trace)
[2024-04-03 17:56] LABS: Bacteria Urine None Seen (None Seen); Hyaline Casts Urine 0-2 /LPF (0-2); Squamous Epithelial Cell Urine 0-2 /HPF (0-2); UACC Culture Trigger YES
[2024-04-10 10:59] LABS: CA-125 18 U/mL (<35)
== END 2024-04-03 14:35 | disposition home or self-care (01) ==
LOC: HO.XRAY 14:34
PROVIDERS: Absent Provider Internal Medicine; PCP Internal Medicine; Visit Provider Obstetrics & Gynecology
DX: C54.1 Malignant neoplasm of endometrium (principal); E55.9 Vitamin D deficiency, unspecified; E78.00 Pure hypercholesterolemia, unspecified; D64.9 Anemia, unspecified; R30.0 Dysuria; Z71.2 Person consulting for explanation of examination or test findings
CPT/HCPCS: 36415; 71046; 80053; 80061; 81001; 82306; 84443; 84520; 85025; 86304; 87086; 99212

== ENCOUNTER 2024-04-12 08:40 | Outpatient (REF) | payer MEDICARE, SELFPAY | END 2024-04-12 08:41 | disposition home or self-care (01) | LOC: HO.LNP 08:40 | PROVIDERS: Visit Provider Obstetrics & Gynecology | DX: Z13.89 Encounter for screening for other disorder (principal) ==

== ENCOUNTER 2024-05-19 03:28 | Emergency (ER) | payer MEDICARE, SELFPAY ==
--- NOTE | 2024-05-19 | ECG_ITS ---
Test Reason : ALTERED MENTAL/ABD PAIN Blood Pressure : / mmHG Vent. Rate : 074 BPM Atrial Rate : 074 BPM P-R Int : 206 ms QRS Dur : 086 ms QT Int : 372 ms P-R-T Axes : 066 021 005 degrees QTc Int : 412 ms Normal sinus rhythm Inferior infarct (cited on or before 17-JUL-2016) Anterior infarct (cited on or before 17-JUL-2016) Abnormal ECG When compared with ECG of 13-JUN-2017 11:58, No significant change was found Referred By: Generic ED Physician Electronically Signed By:AQUILINO DOUGLAS MD
--- NOTE | ~2024-05-19 | XR_ITS ---
EXAMINATION: XR CHEST CLINICAL INFORMATION: Cough. COMPARISON: 04/03/2024. TECHNIQUE: Frontal view of the chest was obtained. FINDINGS: The cardiomediastinal silhouette is within normal limits and stable. There is left lower lung field increased markings. The lungs are otherwise clear. There are significant pleural effusions. The bony structures and soft tissues are unremarkable. XR/XR chest 1V IMPRESSION: Left lower lung field increased markings could represent atelectasis or a developing infiltrate. Correlation is needed as this is a subtle finding.
--- NOTE | ~2024-05-19 | CT_ITS ---
EXAMINATION: CT HEAD WITHOUT CONTRAST CLINICAL INFORMATION: Altered mental status, postoperative. COMPARISON: No similar priors. TECHNIQUE: Contiguous axial imaging was performed from the skull base to vertex without intravenous administration of contrast. This CT examination was performed using dose optimization techniques as appropriate, variously including the following: *Automated exposure control *Adjustment of mA and/or kV according to patient size (this includes techniques or standardized protocols for targeted exams where dose is matched to indication/reason for exam; i.e. extremities or head) *Use of iterative reconstruction technique DLP: 596 mGy-cm FINDINGS: There is no evidence of acute intracranial hemorrhage or edematous territorial infarction. A few foci of hypoattenuation in the periventricular and deep white matter are consistent with mild microangiopathy. Ya-white matter differentiation is preserved. Proportional prominence of the ventricles and sulcal spaces. No evidence for obstructive hydrocephalus. No abnormal mass effect or midline shift. No extra-axial fluid collections. No acute soft tissue or osseous abnormalities. Hyperostosis frontalis interna. Degenerative changes of the temporomandibular joints. Mucosal thickening of the paranasal sinuses with small air-fluid levels in the maxillary sinuses. The mastoids and middle ear cavities are clear. Bilateral lens extraction. CT/CT head/brain wo IV con IMPRESSION: 1. No evidence of acute intracranial hemorrhage or edematous territorial infarction. 2. Mild chronic microangiopathy and generalized cerebral volume loss. 3. Paranasal sinus disease. Correlate clinically for acute sinusitis.
[2024-05-19 03:33] VITALS: BP 180/100; PULSE 72; O2SAT 97
[2024-05-19 03:36] VITALS: BP 168/52; PULSE 74; RESP 18; TEMP 37.9; O2SAT 96; BMI 33.0
--- NOTE | 2024-05-19 04:08 | ED.ABDPAIN ---
HPI - Abdominal Pain General Chief Complaint: Abdominal Pain Stated Complaint: AMS, WEAKNESS Time Seen by Provider: 05/19/24 04:01 Source: EMS Mode of arrival: EMS Limitations: altered mental status History of Present Illness ED Provider: nori LIU narrative: Patient is 73 years old with history of grade 2 endometrial cancer, hypertension, coronary artery disease status post STEMI, depression underwent robotic laparoscopic hysterectomy on 05/15 at [facility] comes here as been more confused and abdominal pain per EMS who got the history from her grandson who is unable to reach on arrival patient noted to have temperature of 100.2 degrees no cough noted Related Data Home Medications ?Medication ?Instructions ?Recorded ?Confirmed aspirin 81 mg tablet,delayed 81 mg PO DAILY 10/07/20 03/06/24 release (Adult Aspirin Regimen) clopidogrel 75 mg tablet 75 mg PO DAILY 10/07/20 03/06/24 losartan 50 mg tablet 50 mg PO DAILY 10/07/20 03/06/24 metoprolol succinate 25 mg 25 mg PO DAILY 10/07/20 03/06/24 tablet,extended release 24 hr Previous Rx's ?Medication ?Instructions ?Recorded cyclobenzaprine 5 mg tablet 5 mg PO TID PRN muscle spasm #30 02/07/23 tabs trazodone 50 mg tablet 25 - 50 mg (0.5 - 1 x 50 mg) PO 06/15/23 BEDTIME PRN sleep 30 days #30 tabs lorazepam 0.5 mg tablet 0.5 mg PO BEDTIME PRN sleep #30 08/31/23 tabs buspirone 15 mg tablet 15 mg PO BID 90 days #180 tabs 09/07/23 rosuvastatin 40 mg tablet 40 mg PO DAILY #90 tabs 02/24/24 sertraline 100 mg tablet 200 mg (2 x 100 mg) PO DAILY 90 02/24/24 days #180 tabs oxycodone-acetaminophen 5 mg-325 1 tab PO Q12H PRN pain 28 days #56 04/09/24 mg tablet (Percocet) tabs omeprazole 20 mg capsule,delayed 20 mg PO DAILY #90 caps 05/08/24 release Allergies Allergy/AdvReac Type Severity Reaction Status Date / Time Sulfa (Sulfonamide Allergy Intermediate RASH Verified 05/19/24 03:44 Antibiotics) [SULFA(SULFONAMIDE ANTIBIOTICS)] methazolamide Allergy Unknown RASH Verified 05/19/24 03:44 [From NEPTAZANE] Neptazane Allergy Unknown unknown Uncoded 05/19/24 03:44 Review of Systems Review of Systems Yes Unobtainable due to mental status [facility] Past Medical History Medical History (Updated 05/19/24 @ 07:33 by Usman Craig MD) Ischemic cardiomyopathy GERD without esophagitis Obesity (BMI 30-39.9) Depression Anxiety Insomnia Primary osteoarthritis of right shoulder Benign essential hypertension Coronary artery disease Osteoarthritis of right shoulder STEMI (ST elevation myocardial infarction) Pure hypercholesterolemia Surgical History (Updated 05/19/24 @ 07:25 by Usman Craig MD) S/P total abdominal hysterectomy S/P coronary artery stent placement (~07/2016) S/P excision of lipoma (~2000) S/P medial meniscectomy of left knee (~09/2012) Social History Social History Housing: House Alcohol intake: never Patient Tobacco Use Status: Never used Tobacco e-Cigarette/Vaping Use: Never Used Second Hand Smoke Exposure: Yes Advance Directives: No Advance Directives Information Provided: No Do you have a plan to hurt others: No Plan service: No Current occupational status: retired Cognitive needs: No Hearing needs: No Vision needs: No Physical Exam ED Vital Signs: Vital Signs - 24 hr 05/19/24 03:36 05/19/24 06:07 Temperature 100.2 F 100.3 F Pulse Rate 74 74 Respiratory Rate 18 20 Blood Pressure 168/52 H 148/50 H Pulse Oximetry 96 96 Oxygen Delivery Method Room Air Room Air BMI result Body Mass Index 33.0 Appearance: Alert. And awake but confused. No acute distress. Eyes: PERRLA, No Nystagmus ENT: Pharynx normal. Oral Mucosa moist no signs of head injury Neck: Normal inspection. Neck supple. CVS: Normal heart rate and rhythm. Pulses normal. Respiratory: No respiratory distress. Equal air entry bilateral, no wheezing/rales/rhonchi Abdomen: Soft and nontender. Bowel sounds are present, no mass palpable, no CVA tenderness laparoscopic scars healthy Skin: Skin warm and dry. Normal skin color. Normal skin turgor. Extremities: No lower extremity edema. No calf tenderness Neuro: Alert and awake but confused. No motor deficit. No sensory deficit.No cerebellar signs , cranial nerves II-XII intact Medical Decision Making Medical Decision Making [facility] Narrative: Patient is status post total abdominal hysterectomy on 05/15 comes here with nonspecific complaints abdominal pain and noted to be in increased confused does not know where she is where was surgery done patient is on oxycodone lorazepam trazodone 725 per family patient was confused and grandson called EMS fell down prior to arrival without significant injury patient's granddaughter Laura phone number is [phone] who give us details. workup here showed patient is positive for influenza B will do had CT scan to rule out any acute patient's symptoms likely from influenza a and likely patient took her medications which can cause sedation and confusion 730am patient is signed out to Dr. Fajardo pending CT scan of the head and disposition Differential Diagnosis Differential Diagnoses: The differential diagnosis associated with the presentation includes Metabolic encephalopathy/UTI/viral infection/head injury/medication overuse Lab Data [facility] Lab Attestation statement: I reviewed the patient's lab results. 05/19/24 04:07 05/19/24 04:07 Labs: Lab Results 05/19/24 Range/Units 04:07 WBC 3.6 L (4.8-10.8) X10*3/uL RBC 4.21 (4.20-5.50) X10*6/uL Hgb 12.4 (12.0-16.0) g/dl Hct 36.0 L (37.0-47.0) % MCV 85.5 (80.0-98.0) fL MCH 29.5 (27.0-33.0) pg MCHC 34.4 (31.0-35.0) g/dl RDW 13.0 (11.0-16.0) % Plt Count 92 L D (160-400) X10*3/uL MPV 8.9 L (9.4-12.3) fL Immature Gran % (Auto) 0.3 (0.0-0.4) % Neut % (Auto) 85.8 H (45-73) % Lymph % (Auto) 6.9 L (20-40) % [place] % (Auto) 5.3 (2-11) % Eos % (Auto) 1.7 (0-4) % Baso % (Auto) 0.0 (0-2) % Lymph # (Auto) 0.3 L (1.2-4.9) X10*3/uL [place] # (Auto) 0.2 (0.1-1.2) X10*3/uL Eos # (Auto) 0.1 (0.0-0.4) X10*3/uL Baso # (Auto) 0.0 (0.0-0.2) X10*3/uL Abs Immat Gran (auto) 0.01 (0.00-0.03) X10*3/uL Absolute Neuts (auto) 3.1 (2.0-8.3) x10*3/uL Absolute Nucleated RBC 0.000 (0.0-0.012) X10*3/uL Nucleated RBC % (auto) 0.0 (0.0-0.2) /100WBC Sodium 138 (135-145) mmol/L Potassium 3.9 (3.3-5.1) mmol/L Chloride 103 (96-108) mmol/L Carbon Dioxide 22 (22-29) mmol/L Anion Gap 17 (12-20) BUN 11 (9-16) mg/dL Creatinine 0.98 (0.5-1.4) mg/dL Estim Creat Clear Calc 51.1 Estimated GFR 55 Random Glucose 135 H (60-115) mg/dL Lactic Acid 0.9 (0.5-2.0) mmol/L Calcium 9.0 D (8.4-10.2) mg/dL Influenza Type A (PCR) POSITIVE A (Negative) Influenza Type B (PCR) NEGATIVE (Negative) RSV RNA Qual (PCR) NEGATIVE (Negative) SARS-CoV-2 RNA (RT-PCR) NEGATIVE (Negative) Independent Interpretation I performed an independent interpretation of an: EKG Interpretation: Normal sinus rhythm normal interval normal axis no acute ST-T changes no acute ischemia Medications Administered Discontinued Medications Generic Name Dose Route Start Last Admin Trade Name Freq PRN Reason Stop Dose Admin Sodium Chloride 1,000 mls @ 999 mls/hr 05/19/24 04:34 05/19/24 04:49 Ns IV 05/19/24 05:34 999 mls/hr .Q1H1M ONE Administration Discharge Plan Discharge Clinical Impression: Influenza A, Acute metabolic encephalopathy Patient Disposition: Still a Patient Prescriptions: No Action clopidogrel 75 mg tablet 75 mg PO DAILY aspirin [Adult Aspirin Regimen] 81 mg tablet,delayed release (DR/EC) 81 mg PO DAILY losartan 50 mg tablet 50 mg PO DAILY metoprolol succinate 25 mg tablet extended release 24 hr 25 mg PO DAILY cyclobenzaprine 5 mg tablet 5 mg PO TID PRN (Reason: muscle spasm) Qty: 30 1RF trazodone 50 mg tablet 25 - 50 mg PO BEDTIME PRN (Reason: sleep) 30 Days Qty: 30 3RF lorazepam 0.5 mg tablet 0.5 mg PO BEDTIME PRN (Reason: sleep) Qty: 30 2RF buspirone 15 mg tablet 15 mg PO BID 90 Days Qty: 180 1RF rosuvastatin 40 mg tablet 40 mg PO DAILY Qty: 90 1RF sertraline 100 mg tablet 200 mg PO DAILY 90 Days Qty: 180 0RF oxycodone-acetaminophen [Percocet] 5-325 mg tablet 1 tab PO Q12H PRN (Reason: pain) 28 Days Qty: 56 0RF omeprazole 20 mg capsule,delayed release(DR/EC) 20 mg PO DAILY Qty: 90 2RF Print Language: Nepali
[2024-05-19 04:14] LABS: MANUAL DIFF FLAG NO
[2024-05-19 04:15] LABS: Eosinophils Absolute Auto 0.1 X10*3/uL (0.0-0.4); Eosinophils Percent Auto 1.7 % (0-4); Hemoglobin 12.4 g/dl (12.0-16.0); Imm Gran Abs Auto 0.01 X10*3/uL (0.00-0.03); Imm Gran Pct Auto 0.3 % (0.0-0.4); Lymphocytes Absolute Auto 0.3 X10*3/uL (1.2-4.9); Lymphocytes Percent Auto 6.9 % (20-40); Mean Corpuscular HGB Conc 34.4 g/dl (31.0-35.0); Mean Corpuscular Hemoglobin 29.5 pg (27.0-33.0); Mean Corpuscular Volume 85.5 fL (80.0-98.0); Mean Platelet Volume 8.9 fL (9.4-12.3); Monocytes Absolute Auto 0.2 X10*3/uL (0.1-1.2); Monocytes Percent Auto 5.3 % (2-11); Neutrophils Absolute Auto 3.1 x10*3/uL (2.0-8.3); Neutrophils Percent Auto 85.8 % (45-73); Red Blood Count 4.21 X10*6/uL (4.20-5.50); White Blood Count 3.6 X10*3/uL (4.8-10.8)
[2024-05-19 04:16] LABS: Platelet Count 92 X10*3/uL (160-400)
[2024-05-19 04:26] LABS: Lactic Acid 0.9 mmol/L (0.5-2.0)
--- NOTE | 2024-05-19 04:26 | MHC.EDTECH ---
Patient was biba from home ,vitals taken ,patient was change into hospital attire and hooked up to front desk monitor ,Blood drawn including both sets of culture and lactic acid all drawn from different sites and sent to lab ,ekg taken and was read by Provider .Patient is altered RN aware .
[2024-05-19 04:29] LABS: Anion Gap 17 (12-20); Blood Urea Nitrogen 11 mg/dL (9-16); Carbon Dioxide 22 mmol/L (22-29); Chloride 103 mmol/L (96-108); Creatinine Clr Calc Pharmacy 51.1; Estimated Glomerular Filt Rate 55; Glucose Random 135 mg/dL (60-115); Potassium 3.9 mmol/L (3.3-5.1); Sodium 138 mmol/L (135-145)
[2024-05-19] MEDS: 0.9 % Sodium Chloride 1,000 ML 999 ML IV (04:49)
[2024-05-19 05:02] LABS: Influenza A PCR POSITIVE (Negative); Influenza B PCR NEGATIVE (Negative); Resp Syncy Virus RNA Qual PCR NEGATIVE (Negative); SARS COV2 PCR INHOUSE NEGATIVE (Negative)
[2024-05-19 06:07] VITALS: BP 148/50; PULSE 74; RESP 20; TEMP 37.9; O2SAT 96
[2024-05-19] MEDS: Acetaminophen 325 MG TABLET 650 MG PO (07:36)
[2024-05-19 07:38] LABS: Appearance Urine Cloudy; Color Urine Yellow; Glucose Urine UA Negative (Negative); Leukocyte Esterase Urine Trace (Negative); Nitrite Urine Negative (Negative); UMIC TRIGGER UACC YES; Urine Blood Large (3+) (Negative); Urine Ketones Trace mg/dL (Negative); Urine Protein 100 (2+) mg/dL (Neg-Trace)
[2024-05-19 07:40] LABS: Bacteria Urine None Seen (None Seen); Hyaline Casts Urine 0-2 /LPF (0-2); Squamous Epithelial Cell Urine 0-2 /HPF (0-2); WBC Urine 0-5 /HPF (0-5)
--- NOTE | 2024-05-19 08:01 | PC.NURSE ---
this RN resumed care of pt at 0645. vss and up to date. nsr on on the cafeteria monitor. pt alert and oriented to self only. pt unable to answer questions/follow commands appropriately. pt found to be sitting on edge of the bed - pt is a high fall risk. pt easily redirected back into bed. pt is a 1:1 assist while ambulating to the restroom as pt has an extremely unsteady gait. pt verbalizes being unable to keep balance/drifting to the right while ambulating. when medicating pt - pt verbalizes not being able to see straight/seeing double. provider notified/aware. effectiveness pending. head CT ordered. IVF continues to infuse at this time. pt now resting in no apparent distress. no sob/wob noted. respirations even/unlabored. plan of care ongoing.
[2024-05-19 09:39] VITALS: BP 145/55; PULSE 66; RESP 16; TEMP 36.6; O2SAT 96
[2024-05-19 10:37] VITALS: BP 136/54; PULSE 66; RESP 16; TEMP 36.6; O2SAT 97
--- NOTE | 2024-05-19 10:46 | PC.NURSE ---
granddaughter (xavi) bedside. pt's family member was given the option by dr. adams to take pt home or have PT/CM consult completed in the ED. after granddaughter discussed situation w/ other family members - they decided that the best option would be to take pt home.
[2024-05-19 10:48] VITALS: BP 136/54; PULSE 66; RESP 16; TEMP 36.6; O2SAT 97
== END 2024-05-19 10:48 | disposition home or self-care (01) ==
PROVIDERS: Emergency Provider Internal Medicine; PCP Internal Medicine
DX: J10.1 Influenza due to other identified influenza virus with other respiratory manifestations (principal); G93.41 Metabolic encephalopathy; F03.90 Unspecified dementia, unspecified severity, without behavioral disturbance, psychotic disturbance, mood disturbance, and anxiety; R50.9 Fever, unspecified; I10 Essential (primary) hypertension; E78.00 Pure hypercholesterolemia, unspecified; Z79.82 Long term (current) use of aspirin; Z79.899 Other long term (current) drug therapy; Z79.02 Long term (current) use of antithrombotics/antiplatelets; Z11.52 Encounter for screening for COVID-19
CPT/HCPCS: 0241U; 36415; 70450; 71045; 80048; 81001; 83605; 85025; 87040; 93005; 96360; 96361; 99285

== ENCOUNTER → 2024-05-19 04:10 | Outpatient (BNV) | payer MEDICARE, SELFPAY | PROVIDERS: Emergency Provider Internal Medicine; PCP Internal Medicine; Visit Provider Internal Medicine Cardiovascular Disease | DX: R94.31 Abnormal electrocardiogram [ECG] [EKG] (principal) | CPT/HCPCS: 93010 ==

== ENCOUNTER 2024-05-25 14:49 | Outpatient (AMB) | payer MEDICARE, SELFPAY ==
--- NOTE | 2024-05-25 14:56 | A.OFFPC_ITS ---
Vital Signs 05/25/24 14:58 Height 5 ft 3 in Weight 174 lb 2 oz BMI 30.8 BP 130/74 Blood Pressure Location Lt brachial Position Sitting Pulse 65 Pulse Source Pulse Oximeter Pulse Oximetry (%) 98 Oxygen Delivery Method Room Air Intake Visit Reasons: .20 EDF [facility] Dementia Intake Note: Patient is here for hospital discharge follow up. Patient was discharged from [facility] on 05/19/24. Consumer Electronics Merchandiser Required: No Oyster Worker: Present Accompanied by: Grand Child Allergies Sulfa (Sulfonamide Antibiotics) [SULFA(SULFONAMIDE ANTIBIOTICS)] Allergy (Intermediate, Verified 05/25/24 14:58) RASH methazolamide [From NEPTAZANE] Allergy (Unknown, Verified 05/25/24 14:58) RASH Neptazane Allergy (Unknown, Uncoded 05/19/24 03:44) unknown Tobacco use date assessed: 05/25/24 Fall risk assessment: 1 Fall in past year Last assessed Fall Risk: 05/25/24 Dental Screening Dental Screen Date: 05/25/24 Did you have a dental visit in the last 12 months?: Yes Did you have a dental problem in the last 6 months where you did not have access to dental care?: No Was dental information given to patient?: Patient has dentist HPI HPI Comments History of Present Illness Details 73 y/o female patient who presents to [facility] clinic today for HDF. She was admitted to [facility] on 05/19/24 for memory changes. She is accompanied by Grand- daughter who provides most of the history. Pt was found to have Influenza in the hospital. She was discharged home the same day since she was asymptomatic. Pt is planning to move to [place] to live with her son before the end of this year. Grand-daughter worried that Patient is showing early signs of Dementia, wondering if we could refer Patient for evaluation. [facility] Medical History (Updated 05/20/24 @ 00:00 by Warner Anderson) Ischemic cardiomyopathy GERD without esophagitis Obesity (BMI 30-39.9) Depression Anxiety Insomnia Primary osteoarthritis of right shoulder Benign essential hypertension Coronary artery disease Osteoarthritis of right shoulder STEMI (ST elevation myocardial infarction) Pure hypercholesterolemia Surgical History (Updated 05/25/24 @ 15:07 by DEVAUGHN Javier) History of surgery of uterus S/P total abdominal hysterectomy S/P coronary artery stent placement (~07/2016) S/P excision of lipoma (~2000) S/P medial meniscectomy of left knee (~09/2012) Social History Housing: House Alcohol intake: never Patient Tobacco Use Status: Never used Tobacco e-Cigarette/Vaping Use: Never Used Second Hand Smoke Exposure: Yes service: No Current occupational status: retired Cognitive needs: No Hearing needs: No Vision needs: No Questionnaire Thrive Questionnaire Date Thrive assessed: 03/06/24 MAGUI-7 AMB Questionnaire MAGUI-7 Date MAGUI - 7 assessed: 03/06/24 Source: Developed by Drs. Ike Toledo, Colette Gutierrez, Alex Ingram and colleagues, with an educational gumaro from [employer]. Review of Systems Const All systems reviewed & are unremarkable except as noted in HPI and below Physical exam (Primary Care) Vital Signs: Last Vital Signs Pulse 65 05/25/24 14:58 BP 130/74 05/25/24 14:58 Pulse Ox 98 05/25/24 14:58 Oxygen Delivery Method Room Air 05/25/24 14:58 BMI result Body Mass Index 30.8 Tobacco/Smoking Status: Tobacco use Status Tobacco use date assessed 05/25/24 05/25/24 15:04 Patient Tobacco Use Status Never used Tobacco 05/25/24 15:04 e-Cigarette/Vaping Use Never Used 05/25/24 15:04 Thrive Assessment: Date of Thrive Assessment Date Thrive assessed 03/06/24 05/25/24 15:04 Const General: cooperative, comfortable, no acute distress and alert Nutritional Appearance: obese HENMT Head: Yes normocephalic Neuro General: gait normal and moves all extremities Psych Speech and movement: Normal speech and movement present Vital Signs: Last Vital Signs Pulse 65 05/25/24 14:58 BP 130/74 05/25/24 14:58 Pulse Ox 98 05/25/24 14:58 Oxygen Delivery Method Room Air 05/25/24 14:58 BMI result Body Mass Index 30.8 Const General: cooperative, comfortable, no acute distress and alert Nutritional Appearance: obese HEENT Head: Yes normocephalic Neuro General: gait normal and moves all extremities Psych Speech and movement: Normal speech and movement present Assessment and Plan Assessment & Plan (1) Influenza B: Code(s): J10.1 - Influenza due to other identified influenza virus with other respiratory manifestations Plan: Resolved. Denies Fevers, chills, cough, nausea or vomiting. (2) Memory changes: Code(s): R41.3 - Other amnesia Plan: Advised Grand-daughter and patient that I could place referral to Neurology for further testing for memory disease. Unfortunately Patient is planning to move to [facility] to live with Son (in the next month). If plans to move change, Pt may f/u with PCP regarding this issue in the future. Pt does not believe to be having any memory problems. States I do remember everything, there is nothing wrong with me . pt upset that her Family thinks she has Dementia. Coding Level of Care Code Est Pt Level 4 (31213) Diagnoses Influenza B J10.1 Memory changes R41.3 Comment Spent 20 minutes on reviewing hospital notes.
[2024-05-25 14:58] VITALS: BP 130/74; PULSE 65; O2SAT 98; BMI 30.8
== END 2024-05-25 15:34 | disposition home or self-care (01) ==
PROVIDERS: PCP Internal Medicine; Visit Provider Nurse Practitioner Family
DX: J10.1 Influenza due to other identified influenza virus with other respiratory manifestations (principal); R41.3 Other amnesia
CPT/HCPCS: 99214

== ENCOUNTER 2024-06-21 10:44 | Outpatient (AMB) | payer MEDICARE, SELFPAY ==
--- NOTE | 2024-06-21 11:44 | A.OFFPSYCH_ITS ---
Intake Intake Visit Reasons: depression Allergies Sulfa (Sulfonamide Antibiotics) [SULFA(SULFONAMIDE ANTIBIOTICS)] Allergy (Intermediate, Verified 05/25/24 14:58) RASH methazolamide [From NEPTAZANE] Allergy (Unknown, Verified 05/25/24 14:58) RASH Neptazane Allergy (Unknown, Uncoded 05/19/24 03:44) unknown Medication List - Last Reconciled 06/21/24 by Adarsh Calderon MD aspirin (Adult Aspirin Regimen) 81 mg PO DAILY buspirone 15 mg PO BID 90 days clopidogrel 75 mg PO DAILY cyclobenzaprine 5 mg PO TID PRN lorazepam 0.5 mg PO BEDTIME PRN losartan 100 mg PO DAILY metoprolol succinate ER 25 mg PO DAILY omeprazole 20 mg PO DAILY oxycodone-acetaminophen 5-325 mg (Percocet) 1 tab PO Q12H PRN 28 days rosuvastatin 40 mg PO DAILY sertraline 200 mg (2 x 100 mg) PO DAILY trazodone 25 - 50 mg (0.5 - 1 x 50 mg) PO BEDTIME PRN 30 days HPI- Psychiatric Chief Complaint: depression HPI Narrative: Patient seen psychiatric follow-up. Patient has not been seen for an extended period of time. Should be noted that the patient's but a number of months ago the patient has been recovering from that. The patient recently has been referred to survey cad technician Oncology at [facility] recently had surgery for appears to be ovarian cancer. The patient's mood has been somewhat appropriately anxious she has been getting support from her family. Her grandson had recently moved out and is on his own patient is considering moving down to [place] to live with 1 of her sons who has offered to move her. Patient denies any alcohol use occasional use of lorazepam otherwise remains on sertraline and BuSpar. Denies any cognitive issues Past Psychiatric History: hx depression anxiety son few yrs ago accidental overdose Mental Status Exam Mental Status Exam Narrative: 5th floor 2023 pres [facility] bubba guzman summer dlrow mood some anxiety Some distractibility Mood described as some anxiety full affect no psychotic symptoms no thoughts of self-harm no thoughts of harm to others impulse control intact Assessment and Plan Assessment & Plan (1) Coronary artery disease: Status: Acute Qualifiers: Associated angina: without angina Coronary Disease-Associated Artery/Lesion type: [place] artery [place] vs. transplanted heart: [place] heart Qualified Code(s): I25.10 - Atherosclerotic heart disease of [place] coronary artery without angina pectoris Code(s): I25.10 - Atherosclerotic heart disease of [place] coronary artery without angina pectoris (2) Major depression in remission: Status: Acute Code(s): F32.5 - Major depressive disorder, single episode, in full remission (3) Cognitive changes: Status: Acute Code(s): R41.89 - Other symptoms and signs involving cognitive functions and awareness (4) Generalized anxiety disorder: Status: Acute Code(s): F41.1 - Generalized anxiety disorder Plan Patient seen psychiatric follow-up seems generally stable and is getting extensive family support has had surgery it appears for ovarian cancer having follow-up appointments is supposed to be having radiation treatment. Some cognitive changes noted. Continue sertraline occasional lorazepam BuSpar Check TSH B12 folate lipid panel homocystine metabolic profile check for any causes regarding cognitive impairment patient does have history of heart disease follow-up 6 weeks Medications: Refilled lorazepam 0.5 mg PO BEDTIME PRN 30 tabs 2RF sleep sertraline 200 mg (2 x 100 mg) PO DAILY 180 tabs 1RF Orders: Orders TSH reflex Free T4 06/22/24 R41.89 - Other symptoms and signs involving cognitive functions and awareness Lipid Panel 06/22/24 I25.10 - Atherosclerotic heart disease of [place] coronary artery without angina pectoris, R41.89 - Other symptoms and signs involving cognitive functions and awareness Vitamin B12 and Folate 06/22/24 R41.89 - Other symptoms and signs involving cognitive functions and awareness Comprehensive Met. Panel 06/22/24 R41.89 - Other symptoms and signs involving cognitive functions and awareness Homocysteine 06/22/24 I25.10 - Atherosclerotic heart disease of [place] coronary artery without angina pectoris, R41.89 - Other symptoms and signs involving cognitive functions and awareness Counseling and coordination of Care Details-Self Mgmt counseling: Supportive counseling regarding multiple recent changes in her life Medication management counseling: Effectiveness, Side effects and Dosing range Diagnosis and Prognosis Counseling: Adequacy of current interventions Details: I spent [38] minutes reviewing the record, seeing the patient and documenting in the medical record. Counseling provided to the patient/caregiver as outlined below. Addressed patient/caregiver concerns regarding current medication regime including effective adherence. Addressed patient/caregiver concerns regarding diagnosis and prognosis including accuracy of diagnosis, prognosis over time, impact of diagnosis. Addressed patient/caregiver concerns regarding impact of recent stressors. [facility] Medical History (Updated 06/25/24 @ 23:26 by Adarsh Calderon MD) Generalized anxiety disorder Ischemic cardiomyopathy GERD without esophagitis Obesity (BMI 30-39.9) Depression Anxiety Insomnia Primary osteoarthritis of right shoulder Benign essential hypertension Coronary artery disease Osteoarthritis of right shoulder STEMI (ST elevation myocardial infarction) Pure hypercholesterolemia Surgical History (Updated 05/25/24 @ 15:07 by DEVAUGHN Javier) History of surgery of uterus S/P total abdominal hysterectomy S/P coronary artery stent placement (~07/2016) S/P excision of lipoma (~2000) S/P medial meniscectomy of left knee (~09/2012) Social History Housing: House Alcohol intake: never Patient Tobacco Use Status: Never used Tobacco e-Cigarette/Vaping Use: Never Used Second Hand Smoke Exposure: Yes service: No Current occupational status: retired Cognitive needs: No Hearing needs: No Vision needs: No Social History: 3 children 1 h has copd Substance History: hx alcohol abuse Trauma History: of son Coding Level of Care Code Est Pt Level 3 (00478) Therapy 30m w/E&M (33616) Diagnoses Coronary artery disease involving [place] coronary artery of [place] heart without angina pectoris I25.10 Associated angina: without angina Coronary Disease-Associated Artery/Lesion type: [place] artery [place] vs. transplanted heart: [place] heart Major depression in remission F32.5 Cognitive changes R41.89 Generalized anxiety disorder F41.1
== END 2024-06-21 12:09 | disposition home or self-care (01) ==
LOC: HO.HOP 10:44
PROVIDERS: PCP Internal Medicine; Visit Provider Psychiatry & Neurology Psychiatry
DX: F32.5 Major depressive disorder, single episode, in full remission (principal); R41.89 Other symptoms and signs involving cognitive functions and awareness; F41.1 Generalized anxiety disorder; I25.10 Atherosclerotic heart disease of native coronary artery without angina pectoris
CPT/HCPCS: 90833; 99213

== ENCOUNTER → 2024-06-21 10:44 | Outpatient (BNVA) | payer MEDICARE, SELFPAY | PROVIDERS: PCP Internal Medicine; Visit Provider Psychiatry & Neurology Psychiatry | DX: I25.10 Atherosclerotic heart disease of native coronary artery without angina pectoris (principal); I10 Essential (primary) hypertension; F32.5 Major depressive disorder, single episode, in full remission; F41.1 Generalized anxiety disorder; R41.89 Other symptoms and signs involving cognitive functions and awareness | CPT/HCPCS: 99212 ==

== ENCOUNTER 2024-06-22 11:19 | Outpatient (REF) | payer MEDICARE, SELFPAY ==
[2024-06-22 12:28] LABS: Alanine Aminotransferase 20 U/L (0-31); Albumin Level 4.5 g/dL (3.5-5.0); Alkaline Phosphatase 83 U/L (39-117); Anion Gap 10 (12-20); Aspartate Amino Transferase 22 U/L (5-31); Bilirubin Total 0.4 mg/dL (0.0-1.0); Blood Urea Nitrogen 16 mg/dL (9-16); Calcium 9.8 mg/dL (8.4-10.2); Carbon Dioxide 28 mmol/L (22-29); Chloride 107 mmol/L (96-108); Cholesterol 146 mg/dL (<200); Estimated Glomerular Filt Rate 53; Glucose Random 108 mg/dL (60-115); HDL Cholesterol 54 mg/dL (>40); LDL Cholesterol Calculated 65 mg/dL (<100); Potassium 4.4 mmol/L (3.3-5.1); Sodium 141 mmol/L (135-145); Total Protein 7.1 g/dL (6.5-8.0); Triglycerides 139 mg/dL (<150)
[2024-06-22 12:44] LABS: TSH reflex Free T4 1.71 uIU/mL (0.32-4.0)
[2024-06-22 12:55] LABS: Vitamin B12 252 pg/mL (200-900)
[2024-06-25 17:40] LABS: Homocysteine 28.9 umol/L (<10.4)
== END 2024-06-22 11:20 | disposition home or self-care (01) ==
LOC: HO.LAB 11:19
PROVIDERS: PCP Internal Medicine; Visit Provider Psychiatry & Neurology Psychiatry
DX: R41.89 Other symptoms and signs involving cognitive functions and awareness (principal); I25.10 Atherosclerotic heart disease of native coronary artery without angina pectoris
CPT/HCPCS: 36415; 80053; 80061; 82607; 82746; 83090; 84443

== ENCOUNTER 2024-07-19 10:55 | Outpatient (AMB) | payer MEDICARE, SELFPAY ==
[2024-07-19 11:24] VITALS: BP 132/70; PULSE 63; O2SAT 98; BMI 30.8
--- NOTE | 2024-07-19 11:24 | MHC.PC.OV ---
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: No Accompanied by: Self / Same As Patient Allergies Sulfa (Sulfonamide Antibiotics) [SULFA(SULFONAMIDE ANTIBIOTICS)] Allergy (Intermediate, Verified 07/19/24 11:34) RASH methazolamide [From NEPTAZANE] Allergy (Unknown, Verified 07/19/24 11:34) RASH Neptazane Allergy (Unknown, Uncoded 07/19/24 11:34) unknown Medication List - Last Reconciled 07/19/24 by Wai Ferrell MD aspirin (Adult Aspirin Regimen) 81 mg PO DAILY buspirone 15 mg PO BID 90 days lorazepam 0.5 mg PO BEDTIME PRN losartan 100 mg PO DAILY metoprolol succinate ER 25 mg PO DAILY omeprazole 20 mg PO DAILY oxycodone-acetaminophen 5-325 mg (Percocet) 1 tab PO Q12H PRN 28 days rosuvastatin 40 mg PO DAILY sertraline 200 mg (2 x 100 mg) PO DAILY Tobacco use date assessed: 07/19/24 Fall risk assessment: 1 Fall in past year Last assessed Fall Risk: 07/19/24 Dental Screening Dental Screen Date: 07/19/24 Did you have a dental visit in the last 12 months?: Yes Did you have a dental problem in the last 6 months where you did not have access to dental care?: No Was dental information given to patient?: Patient has dentist HPI 4mt f/u HPI Details Patient comes in today for her follow up visit States that she currently feels okay She was diagnosed with endometrial carcinoma (pathology was endometrial adenocarcinoma, endometrioid type, FIGO grade 2) after she was referred to gynecology at her last visit for post-menopausal bleeding She was then referred to gynecologic oncology at [facility] and she ultimately underwent robotic-assisted total laparoscopic hysterectomy, bilateral salpingo-oophorectomy, bilateral pelvic lymphadenectomy with Dr. Angela Orr at [facility] on 05/15/2024 She is currently going for high dose rate (HDR) brachytherapy x 5 fractions - she just had her 3rd dose yesterday States that she has been tolerating her treatments so far She denies any headaches or dizziness Denies any chest pains, no SOB No nausea/vomiting, no abdominal pain No change in bowel habits noted She had some labs done last month (ordered by Dr. Calderon) [facility] Medical History Generalized anxiety disorder Ischemic cardiomyopathy GERD without esophagitis Obesity (BMI 30-39.9) Depression Anxiety Insomnia Primary osteoarthritis of right shoulder Benign essential hypertension Coronary artery disease Osteoarthritis of right shoulder STEMI (ST elevation myocardial infarction) Pure hypercholesterolemia Surgical History (Updated 07/19/24 @ 12:31 by Wai Ferrell MD) History of hysterectomy for malignancy S/P coronary artery stent placement (~07/2016) S/P excision of lipoma (~2000) S/P medial meniscectomy of left knee (~09/2012) Social History Housing: House Alcohol intake: never Patient Tobacco Use Status: Never used Tobacco e-Cigarette/Vaping Use: Never Used Second Hand Smoke Exposure: Yes service: No Current occupational status: retired Cognitive needs: No Hearing needs: No Vision needs: No Questionnaire PHQ-9 Over the last 2 weeks, how often have you been bothered by any of the following problems? 1. Little interest or pleasure in doing things: not at all 2. Feeling down, depressed, or hopeless: not at all 3. Trouble falling or staying asleep, or sleeping too much: not at all 4. Feeling tired or having little energy: not at all 5. Poor appetite or overeating: not at all 6. Feeling bad about yourself - or that you are a failure or have let yourself or your family down: not at all 7. Trouble concentrating on things, such as reading the newspaper or watching television: not at all 8. Moving or speaking so slowly that other people could have noticed. Or the opposite - being so fidgety or restless that you have been moving around a lot more than usual: not at all 9. Thoughts that you would be better off or of hurting yourself in some way: not at all Total score: 0 Depression Screening Interpretation: Positive Depression Screening Follow-up: Existing condition and In treatment Depression Screening Done: Yes 94779 - PHQ-9 Billing: Yes Source: Developed by Drs. Ike Toledo, Colette Gutierrez, Alex Ingram and colleagues, with an educational gumaro from [employer]. Thrive Questionnaire Date Thrive assessed: 07/19/24 I am a: Patient What is your living situation today?: I have a steady place to live Within the past 12 months, did the food you bought not last and you didn't have the money to get more?: Never true Within the past 12 months, did you worry whether your food would run out before you got money to buy more?: Never true Do you have trouble paying for medicines?: No Do you have trouble getting transportation to medical appointments?: No Do you have trouble paying your heating and electricity bill?: No Do you have trouble taking care of your child, family member or friend?: No Do you have trouble with day-to-day activities such as bathing, preparing meals, shopping, managing finances, etc.?: No Are you currently unemployed and looking for a job?: No Are you interested in more education?: No Please select the resources that you would like help with: None Currently or been in a relationship where the following occur: No concerns reported THRIVE Score: 0 AUDIT C Alcohol Use Questionnaire (AUDIT-C) 1. How often do you have a drink containing alcohol?: Never 3. How often do you have six or more drinks on one occasion?: Never Total Score: 0 Score Reviewed/Action Taken: Yes MAGUI-7 AMB Questionnaire MAGUI-7 Date MAGUI - 7 assessed: 07/19/24 Feeling nervous, anxious, or on edge: 0 = Not at all Not being able to stop or control worryin = Not at all Worrying too much about different things: 0 = Not at all Trouble relaxin = Not at all Being so restless that it is hard to sit still: 0 = Not at all Becoming easily annoyed or irritable: 0 = Not at all Feeling afraid as if something awful might happen: 0 = Not at all Total MAGUI-7 score (0-4 normal; 5-9 mild; 10-14 moderate; 15-21 severe): 0 Source: Developed by Colette Barksdale Kurt Kroenke and colleagues, with an educational gumaro from [employer]. Review of Systems Const Denies chills, Reports fatigue, Denies fever(s) and Denies headache(s) ENT Denies dysphagia, Denies dizziness, Denies otalgia, Denies headache(s), Denies neck pain, Denies odynophagia and Denies sore throat Card Denies chest pain, Denies palpitations and Denies dyspnea Resp Denies cough and Denies dyspnea GI Denies abdominal pain, Reports constipation (on and off), Denies dysphagia, Denies heartburn, Denies diarrhea, Denies nausea, Denies odynophagia and Denies vomiting Denies difficulty voiding, Reports nocturia (thinks that this is because she often drinks a lot of water), Denies dysuria and Denies urinary urgency Musc Reports back pain (over the lower back - chronic), Reports arthralgias (right shoulder) and Denies neck pain Skin/Breast Denies rash Neuro Denies dizziness and Denies headache(s) Psych Reports anxiety (better controlled on Rx) and Reports depression (better controlled on Rx) Endo Reports fatigue and Denies palpitations Physical exam (Primary Care) Vital Signs: Last Vital Signs Pulse 63 07/19/24 11:24 BP 132/70 07/19/24 11:24 Pulse Ox 98 07/19/24 11:24 Oxygen Delivery Method Room Air 07/19/24 11:24 BMI result Body Mass Index 30.8 Tobacco/Smoking Status: Tobacco use Status Tobacco use date assessed 07/19/24 07/19/24 11:37 Patient Tobacco Use Status Never used Tobacco 07/19/24 11:37 e-Cigarette/Vaping Use Never Used 07/19/24 11:37 PHQ-9: PHQ-9 Score PHQ-9: Total score 0 07/19/24 11:54 Depression Screening Interpretation: Positive Depression Screening Follow-up: Existing condition and In treatment Thrive Assessment: Date of Thrive Assessment Date Thrive assessed 07/19/24 07/19/24 11:37 Currently or been in a relationship where the following occur: No concerns reported Const General: no acute distress and alert HENMT Ears: TM's normal bilaterally and EAC's normal Throat: Yes posterior oropharynx normal and Yes tonsils normal (no TP congestion noted) Neck Neck: Yes no lymphadenopathy and Yes supple Thyroid: Thyroid normal Resp Auscultation: clear to auscultation bilaterally, no rales and no wheezes Cardio Rate: regular rate Rhythm: regular rhythm Heart sounds: Murmur heart sound present systolic soft, II/ and at the left sternal border GI Palpation (GI): Soft to palpation and nontender Auscultation: normal bowel sounds General: Yes no CVA tenderness Back/Spine/Pelvis Back: no CVA tenderness Thoracic/Lumbar Spine: lumbar spinal tenderness Skin Rashes: no rashes Extrem General: Yes no clubbing, cyanosis or edema Right upper extremity: shoulder/upper arm Details: tenderness Location: of the A-C joint Results Reviewed Results Reviewed: Laboratory Tests 05/19/24 06/22/24 04:07 11:29 WBC 3.6 L Hgb 12.4 Hct 36.0 L Plt Count 92 L D Sodium 141 Potassium 4.4 Creatinine 1.02 Estimated GFR 53 Random Glucose 108 Calcium 9.8 D AST 22 ALT 20 Triglycerides 139 Cholesterol 146 LDL Cholesterol, Calc 65 HDL Cholesterol 54 Vitamin B12 252 Homocysteine 28.9 H TSH 1.71 Assessment and Plan Assessment & Plan (1) Endometrial adenocarcinoma: Comment: endometrioid type, FIGO grade 2 Code(s): C54.1 - Malignant neoplasm of endometrium Plan: Patient underwent robotic-assisted total laparoscopic hysterectomy, bilateral salpingo-oophorectomy, bilateral pelvic lymphadenectomy with Dr. Angela Orr at [facility] on 05/15/2024 She is currently going for high dose rate (HDR) brachytherapy x 5 fractions - she just had her 3rd dose yesterday Follow up with gynecologic oncology and radiation oncology as scheduled (2) Coronary artery disease: Comment: S/P STEMI with stenting in July 2016 Code(s): I25.10 - Atherosclerotic heart disease of [place] coronary artery without angina pectoris Qualifiers: Associated angina: without angina Coronary Disease-Associated Artery/Lesion type: [place] artery [place] vs. transplanted heart: [place] heart Qualified Code(s): I25.10 - Atherosclerotic heart disease of [place] coronary artery without angina pectoris Plan: Patient remains asymptomatic Continue Aspirin 81 mg QD; states that she was taken off Clopidogrel 75 mg QD by cardiology a few weeks ago Follow up with cardiology as scheduled (3) Pure hypercholesterolemia: Code(s): E78.00 - Pure hypercholesterolemia, unspecified Plan: Results of her labs done last month reviewed and discussed with patient Reinforced low cholesterol diet Continue Rosuvastatin 40 mg QD Will recheck her labs and fasting lipids in 6 months for follow up (4) Benign essential hypertension: Code(s): I10 - Essential (primary) hypertension Plan: Reinforced low sodium diet - goal is systolic BP of at least 130 mm or less Continue Metoprolol ER 25 mg QD and Losartan 100 mg QD (5) GERD without esophagitis: Code(s): K21.9 - Gastro-esophageal reflux disease without esophagitis Plan: Dietary restrictions reinforced Continue Omeprazole 20 mg QD (6) Primary osteoarthritis of right shoulder: Code(s): M19.011 - Primary osteoarthritis, right shoulder Plan: Continue Percocet 5-325 mg 1 tablet every 12 hours as needed for pain (7) Insomnia: Code(s): G47.00 - Insomnia, unspecified Qualifiers: Insomnia type: unspecified Qualified Code(s): G47.00 - Insomnia, unspecified Plan: Sleep hygiene reinforced She used to take Trazodone 50 mg 1/2 to 1 tablet Q HS PRN but has not needed to recently - states that Lorazepam helps when needed (8) Anxiety: Code(s): F41.9 - Anxiety disorder, unspecified Plan: Continue Buspirone 15 mg BID and Lorazepam 0.5 mg Q HS PRN (9) Depression: Comment: sees Dr. Bandar Calderon Code(s): F32.9 - Major depressive disorder, single episode, unspecified Qualifiers: Active/Remission status: currently active Depression Type: major depressive disorder Major depression episode severity: unspecified Major depression recurrence: recurrent Qualified Code(s): F33.9 - Major depressive disorder, recurrent, unspecified Plan: Continue Sertraline 200 mg QD Follow up with psychiatry (Dr. Calderon) as scheduled (10) Obesity (BMI 30-39.9): Code(s): E66.9 - Obesity, unspecified Plan: Reinforced diet/exercise as tolerated/lose weight Plan Follow up in 6 months - patient requested for a 6 months follow up instead of her usual 4 months Orders: Orders Comprehensive [place]. Panel Fast 6 Months E78.00 - Pure hypercholesterolemia, unspecified Vitamin D 25-OH Total 6 Months E55.9 - Vitamin D deficiency, unspecified Complete Blood Count Auto Diff 6 Months D64.9 - Anemia, unspecified Lipid Panel 6 Months E78.00 - Pure hypercholesterolemia, unspecified TSH reflex Free T4 6 Months E78.00 - Pure hypercholesterolemia, unspecified UA CC w/rflx Micro + Cult 6 Months R30.0 - Dysuria Coding Level of Care Code Est Pt Level 4 (63264) Diagnoses Endometrial adenocarcinoma C54.1 Coronary artery disease involving [place] coronary artery of [place] heart without angina pectoris I25.10 Associated angina: without angina Coronary Disease-Associated Artery/Lesion type: [place] artery [place] vs. transplanted heart: [place] heart Pure hypercholesterolemia E78.00 Benign essential hypertension I10 GERD without esophagitis K21.9 Primary osteoarthritis of right shoulder M19.011 Insomnia, unspecified type G47.00 Insomnia type: unspecified Anxiety F41.9 Episode of recurrent major depressive disorder, unspecified depression episode severity F33.9 Active/Remission status: currently active Depression Type: major depressive disorder Major depression episode severity: unspecified Major depression recurrence: recurrent Obesity (BMI 30-39.9) E66.9
== END 2024-07-19 12:15 | disposition home or self-care (01) ==
PROVIDERS: PCP Internal Medicine; Visit Provider Internal Medicine
DX: I25.10 Atherosclerotic heart disease of native coronary artery without angina pectoris (principal); C54.1 Malignant neoplasm of endometrium; F33.9 Major depressive disorder, recurrent, unspecified; E78.00 Pure hypercholesterolemia, unspecified; I10 Essential (primary) hypertension; K21.9 Gastro-esophageal reflux disease without esophagitis; M19.011 Primary osteoarthritis, right shoulder; G47.00 Insomnia, unspecified; F41.9 Anxiety disorder, unspecified; E66.9 Obesity, unspecified

== ENCOUNTER → 2024-07-19 10:55 | Outpatient (BNVA) | payer MEDICARE, SELFPAY | PROVIDERS: PCP Internal Medicine; Visit Provider Internal Medicine | DX: C54.1 Malignant neoplasm of endometrium (principal); I25.10 Atherosclerotic heart disease of native coronary artery without angina pectoris; E78.00 Pure hypercholesterolemia, unspecified; I10 Essential (primary) hypertension; K21.9 Gastro-esophageal reflux disease without esophagitis; M19.011 Primary osteoarthritis, right shoulder; G47.00 Insomnia, unspecified; F41.9 Anxiety disorder, unspecified; F33.9 Major depressive disorder, recurrent, unspecified; E66.9 Obesity, unspecified; Z68.30 Body mass index [BMI] 30.0-30.9, adult | CPT/HCPCS: 99212 ==

== ENCOUNTER 2024-08-02 11:33 | Outpatient (AMB) | payer MEDICARE, SELFPAY ==
--- NOTE | 2024-08-02 11:47 | A.OFFPSYCH_ITS ---
Intake Intake Visit Reasons: depression Allergies Sulfa (Sulfonamide Antibiotics) [SULFA(SULFONAMIDE ANTIBIOTICS)] Allergy (Intermediate, Verified 07/19/24 11:34) RASH methazolamide [From NEPTAZANE] Allergy (Unknown, Verified 07/19/24 11:34) RASH Neptazane Allergy (Unknown, Uncoded 07/19/24 11:34) unknown Medication List - Last Reconciled 08/02/24 by Adarsh Calderon MD aspirin (Adult Aspirin Regimen) 81 mg PO DAILY buspirone 15 mg PO BID 90 days lorazepam 0.5 mg PO BEDTIME PRN losartan 100 mg PO DAILY metoprolol succinate ER 25 mg PO DAILY omeprazole 20 mg PO DAILY oxycodone-acetaminophen 5-325 mg (Percocet) 1 tab PO Q12H PRN 28 days rosuvastatin 40 mg PO DAILY sertraline 200 mg (2 x 100 mg) PO DAILY HPI- Psychiatric Chief Complaint: depression HPI Narrative: Patient seen psychiatric follow-up. Patient has not been seen for an extended period of time. Should be noted that the patient's but a number of months ago the patient has been recovering from that. The patient recently has been referred to sales branch manager Oncology at [facility] recently had surgery for appears to be ovarian cancer. The patient's mood has been somewhat appropriately anxious she has been getting support from her family. Her grandson had recently moved out and is on his own patient is considering moving down to [place] to live with 1 of her sons who has offered to move her. Patient denies any alcohol use occasional use of lorazepam otherwise remains on sertraline and BuSpar. Denies any cognitive issues 08/02/24 Pt seen in f/u remains generally stable with periods of despair depressed mood but in general able to stay busy feels she is managing has refused IT or support grp no active si. Grandson moving out this will be another loss but grandson will stay engaged. Past Psychiatric History: hx depression anxiety son few yrs ago accidental overdose Mental Status Exam Mental Status Exam Narrative: 5th floor 2023 [facility] mood some anxiety Some distractibility Mood apprehensive constricted no si no de la torre no delusions some difficulty with reasoning at times Assessment and Plan Assessment & Plan (1) Major depressive disorder, recurrent episode with anxious distress: Status: Acute Code(s): F33.9 - Major depressive disorder, recurrent, unspecified Plan some slowed cognition difficulty weighing things some difficulty with memory not on gross testing urged to go to [facility] also discussed elder services. Discussed different ways to engage perhaps more in the community patient has few friends. Patient also has consideration to visit or perhaps move in with her son in [place] if she feels too overwhelmed in an ongoing way continue sertraline BuSpar no adverse effects noted no balance difficulty Check labs for any contributing factors to cognitive issues or other issues Medications: Refilled lorazepam 0.5 mg PO BEDTIME PRN 30 tabs 2RF sleep Orders: Orders Complete Blood Count Auto Diff 08/02/24 F41.1 - Generalized anxiety disorder, R41.89 - Other symptoms and signs involving cognitive functions and awareness, F33.9 - Major depressive disorder, recurrent, unspecified TSH reflex Free T4 08/02/24 F41.1 - Generalized anxiety disorder, R41.89 - Other symptoms and signs involving cognitive functions and awareness, F33.9 - Major depressive disorder, recurrent, unspecified Methylmalonic Acid 08/02/24 F41.1 - Generalized anxiety disorder, R41.89 - Other symptoms and signs involving cognitive functions and awareness, F33.9 - Major depressive disorder, recurrent, unspecified Comprehensive Met. Panel 08/02/24 F41.1 - Generalized anxiety disorder, R41.89 - Other symptoms and signs involving cognitive functions and awareness, F33.9 - Major depressive disorder, recurrent, unspecified Vitamin B12 and Folate 08/02/24 F41.1 - Generalized anxiety disorder, R41.89 - Other symptoms and signs involving cognitive functions and awareness, F33.9 - Major depressive disorder, recurrent, unspecified Counseling and coordination of Care Details-Self Mgmt counseling: Issues related to grief being alone feeling uncertain regarding how to live by herself Details: I spent [] minutes reviewing the record, seeing the patient and documenting in the medical record. Counseling provided to the patient/caregiver as outlined below. Addressed patient/caregiver concerns regarding current medication regime including effective adherence. Addressed patient/caregiver concerns regarding diagnosis and prognosis including accuracy of diagnosis, prognosis over time, impact of diagnosis. Addressed patient/caregiver concerns regarding impact of recent stressors. [facility] Medical History (Updated 07/19/24 @ 14:36 by Wai Ferrell MD) Generalized anxiety disorder Ischemic cardiomyopathy GERD without esophagitis Obesity (BMI 30-39.9) Depression Anxiety Insomnia Primary osteoarthritis of right shoulder Benign essential hypertension Coronary artery disease Osteoarthritis of right shoulder STEMI (ST elevation myocardial infarction) Pure hypercholesterolemia Surgical History (Updated 07/19/24 @ 12:31 by Wai Ferrell MD) History of hysterectomy for malignancy S/P coronary artery stent placement (~07/2016) S/P excision of lipoma (~2000) S/P medial meniscectomy of left knee (~09/2012) Social History Housing: House Alcohol intake: never Patient Tobacco Use Status: Never used Tobacco e-Cigarette/Vaping Use: Never Used Second Hand Smoke Exposure: Yes service: No Current occupational status: retired Cognitive needs: No Hearing needs: No Vision needs: No Social History: 3 children 1 h has copd Substance History: hx alcohol abuse Trauma History: of son Coding Level of Care Code Est Pt Level 3 (14130) Therapy 30m w/E&M (59844) Diagnoses Major depressive disorder, recurrent episode with anxious distress F33.9
== END 2024-08-02 12:23 | disposition home or self-care (01) ==
LOC: HO.HOP 11:33
PROVIDERS: PCP Internal Medicine; Visit Provider Psychiatry & Neurology Psychiatry
DX: F33.9 Major depressive disorder, recurrent, unspecified (principal)
CPT/HCPCS: 90833; 99213

== ENCOUNTER 2024-08-02 11:33 | Outpatient (REF) | payer MEDICARE, SELFPAY ==
[2024-08-02 12:59] LABS: MANUAL DIFF FLAG NO
[2024-08-02 13:28] LABS: Basophils Percent Auto 0.2 % (0-2); Eosinophils Percent Auto 0.9 % (0-4); Hematocrit 38.8 % (37.0-47.0); Imm Gran Abs Auto 0.02 X10*3/uL (0.00-0.03); Imm Gran Pct Auto 0.5 % (0.0-0.4); Lymphocytes Absolute Auto 0.7 X10*3/uL (1.2-4.9); Lymphocytes Percent Auto 16.1 % (20-40); Mean Corpuscular HGB Conc 33.5 g/dl (31.0-35.0); Mean Corpuscular Hemoglobin 29.3 pg (27.0-33.0); Mean Corpuscular Volume 87.6 fL (80.0-98.0); Mean Platelet Volume 9.3 fL (9.4-12.3); Monocytes Absolute Auto 0.3 X10*3/uL (0.1-1.2); Monocytes Percent Auto 6.1 % (2-11); Neutrophils Absolute Auto 3.4 x10*3/uL (2.0-8.3); Neutrophils Percent Auto 76.2 % (45-73); Platelet Count 142 X10*3/uL (160-400); Red Blood Count 4.43 X10*6/uL (4.20-5.50); Red Cell Distribution Width 13.2 % (11.0-16.0); White Blood Count 4.4 X10*3/uL (4.8-10.8)
[2024-08-02 13:59] LABS: Alanine Aminotransferase 17 U/L (0-31); Albumin Level 4.5 g/dL (3.5-5.0); Alkaline Phosphatase 76 U/L (39-117); Anion Gap 12 (12-20); Aspartate Amino Transferase 19 U/L (5-31); Bilirubin Total 0.4 mg/dL (0.0-1.0); Blood Urea Nitrogen 15 mg/dL (9-16); Carbon Dioxide 28 mmol/L (22-29); Chloride 106 mmol/L (96-108); Estimated Glomerular Filt Rate 52; Glucose Random 77 mg/dL (60-115); Potassium 4.7 mmol/L (3.3-5.1); Sodium 141 mmol/L (135-145); Total Protein 7.2 g/dL (6.5-8.0)
[2024-08-02 14:14] LABS: TSH reflex Free T4 1.49 uIU/mL (0.32-4.0)
[2024-08-02 14:21] LABS: Folate 8.9 ng/mL (> or = 4.0); Vitamin B12 254 pg/mL (200-900)
[2024-08-07 10:48] LABS: Methylmalonic Acid 518 nmol/L (69-390)
== END 2024-08-02 11:34 | disposition home or self-care (01) ==
LOC: HO.LAB 11:33
PROVIDERS: PCP Internal Medicine; Visit Provider Psychiatry & Neurology Psychiatry
DX: F33.9 Major depressive disorder, recurrent, unspecified (principal); R41.89 Other symptoms and signs involving cognitive functions and awareness; F41.1 Generalized anxiety disorder
CPT/HCPCS: 36415; 80053; 82607; 82746; 83921; 84443; 85025; 99212

== ENCOUNTER 2024-08-07 11:10 | Outpatient (REF) | payer MEDICARE, SELFPAY ==
[2024-08-07 13:55] LABS: Alanine Aminotransferase 18 U/L (0-31); Albumin Level 4.5 g/dL (3.5-5.0); Alkaline Phosphatase 80 U/L (39-117); Anion Gap 13 (12-20); Aspartate Amino Transferase 19 U/L (5-31); Bilirubin Total 0.4 mg/dL (0.0-1.0); Blood Urea Nitrogen 13 mg/dL (9-16); Carbon Dioxide 29 mmol/L (22-29); Chloride 107 mmol/L (96-108); Cholesterol 140 mg/dL (<200); Estimated Glomerular Filt Rate 49; Glucose Fasting 108 mg/dL (60-99); HDL Cholesterol 49 mg/dL (>40); LDL Cholesterol Calculated 60 mg/dL (<100); Potassium 4.6 mmol/L (3.3-5.1); Sodium 144 mmol/L (135-145); Total Protein 7.2 g/dL (6.5-8.0); Triglycerides 157 mg/dL (<150)
== END 2024-08-07 11:11 | disposition home or self-care (01) ==
LOC: HO.HMGCLDS 11:10
PROVIDERS: PCP Internal Medicine; Visit Provider Internal Medicine
DX: E78.00 Pure hypercholesterolemia, unspecified (principal)
CPT/HCPCS: 36415; 80053; 80061

== ENCOUNTER 2024-09-13 11:33 | Outpatient (AMB) | payer MEDICARE, SELFPAY ==
--- NOTE | 2024-09-13 11:48 | A.OFFPSYCH_ITS ---
Intake Intake Visit Reasons: depression Allergies Sulfa (Sulfonamide Antibiotics) [SULFA(SULFONAMIDE ANTIBIOTICS)] Allergy (Intermediate, Verified 07/19/24 11:34) RASH methazolamide [From NEPTAZANE] Allergy (Unknown, Verified 07/19/24 11:34) RASH Neptazane Allergy (Unknown, Uncoded 07/19/24 11:34) unknown Medication List - Last Reconciled 09/20/24 by Adarsh Calderon MD aspirin (Adult Aspirin Regimen) 81 mg PO DAILY buspirone 15 mg PO BID 90 days lorazepam 0.5 mg PO BEDTIME PRN losartan 100 mg PO DAILY metoprolol succinate ER 25 mg PO DAILY omeprazole 20 mg PO DAILY oxycodone-acetaminophen 5-325 mg (Percocet) 1 tab PO Q12H PRN 28 days rosuvastatin 40 mg PO DAILY sertraline 200 mg (2 x 100 mg) PO DAILY HPI- Psychiatric Chief Complaint: depression HPI Narrative: Pt seen in f/u has been isolated [facility] keep [facility] has been having a hard time with being alone can feel in despair at times cant stand how she is feeling at times feels ok for parts of the day can get lonely and bored at times . has a transient thought once in awhile that she would be better off not there , but denies any plan or intent. Maintains cooking cleaning shopping. does not have much friendship grp does have a neighbor across the street. No loss inability to function do the things that she normally does or getting lost. Does state she can not imagine moving to [place] with her son. does not have significant home-based services. she has been talking to her grandson regarding remaining engaged and helping out at the house Past Psychiatric History: hx depression anxiety son few yrs ago accidental overdose Mental Status Exam Mental Status Exam Narrative: 2023sep 13 [employer] [facility] doctor's 1st and last name 3/3 objects after 5 minutes Assessment and Plan Assessment & Plan (1) Major depressive disorder, recurrent episode with anxious distress: Status: Acute Code(s): F33.9 - Major depressive disorder, recurrent, unspecified (2) Coronary artery disease: Status: Acute Qualifiers: Associated angina: without angina Coronary Disease-Associated Artery/Lesion type: [place] artery [place] vs. transplanted heart: [place] heart Qualified Code(s): I25.10 - Atherosclerotic heart disease of [place] coronary artery without angina pectoris Code(s): I25.10 - Atherosclerotic heart disease of [place] coronary artery without angina pectoris (3) Cognitive changes: Status: Acute Code(s): R41.89 - Other symptoms and signs involving cognitive functions and awareness Plan urged go to [facility] 1-2 x wk labs were unremarkable from July somewhat elevated methylmalonic acid normal B12 folate did recommend B vitamin supplementation follow blood sugar blood pressure unremarkable also discussed recommendation having cat 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 Self Management counseling: Breathing, Light exposure and Behavior activation Details-Self Mgmt counseling: urged inc socialization [facility] offered IT with ongoing therapist Medication management counseling: Effectiveness, Side effects and Dosing range Diagnosis and Prognosis Counseling: Adequacy of current interventions Details: I spent [39] minutes reviewing the record, seeing the patient and documenting in the medical record. Counseling provided to the patient/caregiver as outlined below. Addressed patient/caregiver concerns regarding current medication regime including ef fective adherence. Addressed patient/caregiver concerns regarding diagnosis and prognosis including accuracy of diagnosis, prognosis over time, impact of diagnosis. Addressed patient/caregiver concerns regarding impact of recent stressors. [facility] Medical History (Updated 07/19/24 @ 14:36 by Wai Ferrell MD) Generalized anxiety disorder Ischemic cardiomyopathy GERD without esophagitis Obesity (BMI 30-39.9) Depression Anxiety Insomnia Primary osteoarthritis of right shoulder Benign essential hypertension Coronary artery disease Osteoarthritis of right shoulder STEMI (ST elevation myocardial infarction) Pure hypercholesterolemia Surgical History (Updated 07/19/24 @ 12:31 by Wai Ferrell MD) History of hysterectomy for malignancy S/P coronary artery stent placement (~07/2016) S/P excision of lipoma (~2000) S/P medial meniscectomy of left knee (~09/2012) Social History Housing: House Alcohol intake: never Patient Tobacco Use Status: Never used Tobacco e-Cigarette/Vaping Use: Never Used Second Hand Smoke Exposure: Yes service: No Current occupational status: retired Cognitive needs: No Hearing needs: No Vision needs: No Social History: 3 children 1 h has copd Substance History: hx alcohol abuse Trauma History: of son Coding Level of Care Code Est Pt Level 3 (22709) Therapy 30m w/E&M (04842) Diagnoses Major depressive disorder, recurrent episode with anxious distress F33.9 Coronary artery disease involving [place] coronary artery of [place] heart without angina pectoris I25.10 Associated angina: without angina Coronary Disease-Associated Artery/Lesion type: [place] artery [place] vs. transplanted heart: [place] heart Cognitive changes R41.89
== END 2024-09-13 12:13 | disposition home or self-care (01) ==
LOC: HO.HOP 11:33
PROVIDERS: PCP Internal Medicine; Visit Provider Psychiatry & Neurology Psychiatry
DX: F33.9 Major depressive disorder, recurrent, unspecified (principal); I25.10 Atherosclerotic heart disease of native coronary artery without angina pectoris; R41.89 Other symptoms and signs involving cognitive functions and awareness
CPT/HCPCS: 90833; 99213

== ENCOUNTER → 2024-09-13 11:33 | Outpatient (BNVA) | payer MEDICARE, SELFPAY | PROVIDERS: PCP Internal Medicine; Visit Provider Psychiatry & Neurology Psychiatry | DX: F33.9 Major depressive disorder, recurrent, unspecified (principal); F41.1 Generalized anxiety disorder; R41.89 Other symptoms and signs involving cognitive functions and awareness; I25.10 Atherosclerotic heart disease of native coronary artery without angina pectoris; Z71.89 Other specified counseling | CPT/HCPCS: 99212 ==

== ENCOUNTER 2024-10-30 11:31 | Outpatient (AMB) | payer MEDICARE, SELFPAY ==
--- NOTE | 2024-10-30 12:08 | A.OFFPSYCH_ITS ---
Intake Intake Visit Reasons: Depression Allergies Sulfa (Sulfonamide Antibiotics) [SULFA(SULFONAMIDE ANTIBIOTICS)] Allergy (Intermediate, Verified 07/19/24 11:34) RASH methazolamide [From NEPTAZANE] Allergy (Unknown, Verified 07/19/24 11:34) RASH Neptazane Allergy (Unknown, Uncoded 07/19/24 11:34) unknown Medication List - Last Reconciled 10/30/24 by Adarsh Calderon MD aspirin (Adult Aspirin Regimen) 81 mg PO DAILY buspirone 7.5 mg PO BID lorazepam 0.5 mg PO BEDTIME PRN losartan 100 mg PO DAILY metoprolol succinate ER 25 mg PO DAILY omeprazole 20 mg PO DAILY oxycodone-acetaminophen 5-325 mg (Percocet) 1 tab PO Q12H PRN 28 days risperidone (Risperdal) 0.5 mg PO BEDTIME rosuvastatin 40 mg PO DAILY sertraline 200 mg (2 x 100 mg) PO DAILY HPI- Psychiatric Chief Complaint: Depression HPI Narrative: Patient seen psychiatric follow-up. The patient's mood has generally been okay but she has been experiencing some odd events generally at bedtime. Not clearly hypnagogic but has been experiencing auditory hallucinations that are mostly supportive from her son and her . She does feel that these are communications not seeing them or having visual fleeting images of her son in a mirror at night cross from her bed mood is stable future oriented no thoughts of self-harm. Not overly confused. Patient has not been drinking no gross visual auditory hallucinations during the day she does think their communications and mostly have been reassuring to her Past Psychiatric History: hx depression anxiety son few yrs ago accidental overdose Mental Status Exam Mental Status Exam Narrative: Patient is casually dressed appropriate in manner good eye contact. Her speech is clear and generally goal-directed. Her mood is described as okay her affect appropriate. Content is focused on visual hallucinations of her son and mostly reassuring in a mirror across from her bed at night. She does take this generally has soothing but some visual disturbance during the day in the morning when thought she had seen her next to her and altered physical state her sensorium is clear she is alert she knows the year month day date floor place. Denies any wandering or confusional state she does describe more anxiety at night prior to sleep Assessment and Plan Assessment & Plan (1) Generalized anxiety disorder: Status: Acute Code(s): F41.1 - Generalized anxiety disorder (2) Hallucinations, visual: Status: Acute Code(s): R44.1 - Visual hallucinations Plan Unclear if patient is experiencing hypnagogic hallucinations or what appeared to be generally soothing fleeting visual and auditory hallucinations that are mostly brief. However did an experience in 1 morning that was disturbing to her. Does not appear grossly confused or altered does not appear to be sundowning. Lower BuSpar to 7.5 b.i.d. discussed risks benefits alternatives starting Risperdal 0.25-0.5 mg at bedtime. Strongly urged patient to regularly go to senior center she does have friend that goes regularly suggested patient be seen by social work for the [facility] in brief counseling. Follow-up 1 week does not appear to be sign of psychotic depression patient does have some mild cognitive impairment no urinary symptoms or other physical symptoms noted. May be part of complex grief reaction. Patient does have limited support system son in [place] grandson does live close to her. May need further neurological cognitive workup also had recently been treated for question uteri ne cancer. Medications: New risperidone (Risperdal) 0.5 mg PO BEDTIME 30 tabs 1RF Changed From buspirone 15 mg PO BID 90 days 180 tabs 1RF To buspirone 7.5 mg PO BID Refilled lorazepam 0.5 mg PO BEDTIME PRN 30 tabs 2RF sleep sertraline 200 mg (2 x 100 mg) PO DAILY 180 tabs 1RF buspirone 15 mg PO BID 90 days 180 tabs 1RF Counseling and coordination of Care Details-Self Mgmt counseling: Issues related to grief adjustment to living alone Medication management counseling: Effectiveness Diagnosis and Prognosis Counseling: Impact of diagnosis on life functions, Problematic behaviors secondary to diagnosis and Adequacy of current interventions Details: I spent [40] minutes reviewing the record, seeing the patient and documenting in the medical record. Counseling provided to the patient/caregiver as outlined below. Addressed patient/caregiver concerns regarding current medication regime including ef fective adherence. Addressed patient/caregiver concerns regarding diagnosis and prognosis including accuracy of diagnosis, prognosis over time, impact of diagnosis. Addressed patient/caregiver concerns regarding impact of recent stressors. [facility] Medical History (Updated 11/04/24 @ 17:10 by Adarsh Calderon MD) Generalized anxiety disorder Ischemic cardiomyopathy GERD without esophagitis Obesity (BMI 30-39.9) Depression Anxiety Insomnia Primary osteoarthritis of right shoulder Benign essential hypertension Coronary artery disease Osteoarthritis of right shoulder STEMI (ST elevation myocardial infarction) Pure hypercholesterolemia Surgical History (Updated 07/19/24 @ 12:31 by Wai Ferrell MD) History of hysterectomy for malignancy S/P coronary artery stent placement (~07/2016) S/P excision of lipoma (~2000) S/P medial meniscectomy of left knee (~09/2012) Social History Housing: House Alcohol intake: never Patient Tobacco Use Status: Never used Tobacco e-Cigarette/Vaping Use: Never Used Second Hand Smoke Exposure: Yes service: No Current occupational status: retired Cognitive needs: No Hearing needs: No Vision needs: No Social History: 3 children 1 h has copd Substance History: hx alcohol abuse Trauma History: of son Coding Level of Care Code Est Pt Level 3 (51558) Therapy 30m w/E&M (78191) Diagnoses Generalized anxiety disorder F41.1 Hallucinations, visual R44.1
== END 2024-10-30 12:20 | disposition home or self-care (01) ==
LOC: HO.HOP 11:31
PROVIDERS: PCP Internal Medicine; Visit Provider Psychiatry & Neurology Psychiatry
DX: F41.1 Generalized anxiety disorder (principal); R44.1 Visual hallucinations
CPT/HCPCS: 90833; 99213

== ENCOUNTER → 2024-10-30 11:31 | Outpatient (BNVA) | payer MEDICARE, SELFPAY | PROVIDERS: PCP Internal Medicine; Visit Provider Psychiatry & Neurology Psychiatry | DX: F41.1 Generalized anxiety disorder (principal); R44.1 Visual hallucinations | CPT/HCPCS: 99212 ==

== ENCOUNTER 2024-11-07 16:21 | Outpatient (AMB) | payer MEDICARE, SELFPAY ==
--- NOTE | 2024-11-07 16:30 | MHC.OFFVISPS ---
Intake Intake Visit Reasons: depression Allergies Sulfa (Sulfonamide Antibiotics) [SULFA(SULFONAMIDE ANTIBIOTICS)] Allergy (Intermediate, Verified 07/19/24 11:34) RASH methazolamide [From NEPTAZANE] Allergy (Unknown, Verified 07/19/24 11:34) RASH Neptazane Allergy (Unknown, Uncoded 07/19/24 11:34) unknown HPI- Psychiatric Chief Complaint: depression HPI Narrative: Pt did not start risp was concerned re side effects . States her experiences have mostly stopped . She denies current visual or auditory experiences, no confusional states able to dp her nl fx. Has not yet gone to senior ctr has close friend who goes , has stated will go with her. Mood ok has been somewhat alienated from [facility] . Past Psychiatric History: hx depression anxiety son few yrs ago accidental overdose Mental Status Exam Mental Status Exam Narrative: pt cooperative logical speech clear able to logically state why she did not take take risp. Denies current de la torre or disturbing vis de la torre . Occ has sensation of departed wanting to help her. Mood good affect ana rosa no si no hi alert cognitively clear Telehealth Telehealth Location of provider rendering services: practice address Location of patient: address on file Patient Identification confirmed using: Name, : Yes Telehealth method: video (combination video and voice) Patient verbally consented to treatment: Yes Patient verbally consented to billing insurance company: Yes Patient informed of any privacy concerns related to visit: Yes Minutes spent on Phone/Video with Pt.: 7 Assessment and Plan Assessment & Plan (1) Generalized anxiety disorder: Status: Acute Code(s): F41.1 - Generalized anxiety disorder (2) Hallucinations, visual: Status: Acute Code(s): R44.1 - Visual hallucinations Assessment and Plan: in context of grief of Plan discussed can use risp prn for disturbing de [place] torre states feeling well Medications: Changed From risperidone 0.5 mg PO BEDTIME 30 tabs 1RF To risperidone (Risperdal) 0.5 mg PO BEDTIME PRN 30 tabs 1RF hallucinations Counseling and coordination of Care Details: I spent [] minutes reviewing the record, seeing the patient and documenting in the medical record. Counseling provided to the patient/caregiver as outlined below. Addressed patient/caregiver concerns regarding current medication regime including effective adherence. Addressed patient/caregiver concerns regarding diagnosis and prognosis including accuracy of diagnosis, prognosis over time, impact of diagnosis. Addressed patient/caregiver concerns regarding impact of recent stressors. [facility] Medical History (Updated 11/04/24 @ 17:10 by Adarsh Calderon MD) Generalized anxiety disorder Ischemic cardiomyopathy GERD without esophagitis Obesity (BMI 30-39.9) Depression Anxiety Insomnia Primary osteoarthritis of right shoulder Benign essential hypertension Coronary artery disease Osteoarthritis of right shoulder STEMI (ST elevation myocardial infarction) Pure hypercholesterolemia Surgical History (Updated 07/19/24 @ 12:31 by Wai Ferrell MD) History of hysterectomy for malignancy S/P coronary artery stent placement (~07/2016) S/P excision of lipoma (~2000) S/P medial meniscectomy of left knee (~09/2012) Social History Housing: House Alcohol intake: never Patient Tobacco Use Status: Never used Tobacco e-Cigarette/Vaping Use: Never Used Second Hand Smoke Exposure: Yes service: No Current occupational status: retired Cognitive needs: No Hearing needs: No Vision needs: No Social History: 3 children 1 h has copd Substance History: hx alcohol abuse Trauma History: of son Coding Level of Care Code Tele Est Pt Level 2 (96218) Diagnoses Generalized anxiety disorder F41.1 Hallucinations, visual R44.1
== END 2024-11-07 16:22 | disposition home or self-care (01) ==
LOC: HO.HOP 16:21
PROVIDERS: PCP Internal Medicine; Visit Provider Psychiatry & Neurology Psychiatry
DX: F41.1 Generalized anxiety disorder (principal); R44.1 Visual hallucinations
CPT/HCPCS: 99212

== ENCOUNTER → 2024-11-07 16:21 | Outpatient (BNVA) | payer MEDICARE, SELFPAY | PROVIDERS: PCP Internal Medicine; Visit Provider Psychiatry & Neurology Psychiatry ==

== ENCOUNTER 2025-01-24 11:48 | Outpatient (AMB) | payer MEDICARE, SELFPAY ==
[2025-01-24 11:51] VITALS: BP 122/68; PULSE 57; O2SAT 97; BMI 32.0
--- NOTE | 2025-01-24 11:51 | MHC.PC.OV ---
Vital Signs 01/24/25 11:51 Height 5 ft 3 in Weight 180 lb 8 oz BMI 32.0 BP 122/68 Blood Pressure Location Lt brachial Position Sitting Pulse 57 Pulse Source Pulse Oximeter Pulse Oximetry (%) 97 Oxygen Delivery Method Room Air Intake Visit Reasons: 6 month f/u Crimp Setter Required: No Accompanied by: Self / Same As Patient Allergies Sulfa (Sulfonamide Antibiotics) [SULFA(SULFONAMIDE ANTIBIOTICS)] Allergy (Intermediate, Verified 01/24/25 12:18) RASH methazolamide [From NEPTAZANE] Allergy (Unknown, Verified 01/24/25 12:18) RASH Neptazane Allergy (Unknown, Uncoded 01/24/25 12:18) unknown Medication List - Last Reconciled 01/24/25 by Wai Ferrell MD aspirin (Adult Aspirin Regimen) 81 mg PO DAILY lorazepam 0.5 mg PO BEDTIME PRN losartan 100 mg PO DAILY metoprolol succinate ER 25 mg PO DAILY omeprazole 20 mg PO DAILY oxycodone-acetaminophen 5-325 mg (Percocet) 1 tab PO Q12H PRN 28 days risperidone (Risperdal) 0.5 mg PO BEDTIME PRN rosuvastatin 40 mg PO DAILY sertraline 200 mg (2 x 100 mg) PO DAILY Tobacco use date assessed: 01/24/25 Fall risk assessment: 1 Fall in past year Last assessed Fall Risk: 01/24/25 Dental Screening Dental Screen Date: 01/24/25 Did you have a dental visit in the last 12 months?: Yes Did you have a dental problem in the last 6 months where you did not have access to dental care?: No Was dental information given to patient?: Patient has dentist HPI 6 month f/u HPI Details Patient comes in today for her follow up visit States that she feels okay She denies any headaches or dizziness Denies any chest pains, no SOB No nausea/vomiting, no abdominal pain No change in bowel habits noted She completed her high dose rate (HDR) brachytherapy x 5 fractions for her endometrial carcinoma a few months ago She continues to follow-up with Dr. Calderon for her depression and hallucinations Needs a couple of her Rx refilled today She was not able to get her follow-up labs done prior to her appointment today [facility] Medical History (Updated 01/25/25 @ 04:36 by Wai Ferrell MD) Endometrial adenocarcinoma Generalized anxiety disorder Ischemic cardiomyopathy GERD without esophagitis Obesity (BMI 30-39.9) Depression Anxiety Insomnia Primary osteoarthritis of right shoulder Benign essential hypertension Coronary artery disease Osteoarthritis of right shoulder STEMI (ST elevation myocardial infarction) Pure hypercholesterolemia Surgical History (Updated 01/25/25 @ 04:34 by Wai Ferrell MD) History of hysterectomy for malignancy S/P coronary artery stent placement (~07/2016) S/P excision of lipoma (~2000) S/P medial meniscectomy of left knee (~09/2012) Social History Housing: House Alcohol intake: never Patient Tobacco Use Status: Never used Tobacco e-Cigarette/Vaping Use: Never Used Second Hand Smoke Exposure: Yes service: No Current occupational status: retired Cognitive needs: No Hearing needs: No Vision needs: No Questionnaire PHQ-9 Over the last 2 weeks, how often have you been bothered by any of the following problems? 1. Little interest or pleasure in doing things: not at all 2. Feeling down, depressed, or hopeless: not at all 3. Trouble falling or staying asleep, or sleeping too much: not at all 4. Feeling tired or having little energy: not at all 5. Poor appetite or overeating: not at all 6. Feeling bad about yourself - or that you are a failure or have let yourself or your family down: not at all 7. Trouble concentrating on things, such as reading the newspaper or watching television: not at all 8. Moving or speaking so slowly that other people could have noticed. Or the opposite - being so fidgety or restless that you have been moving around a lot more than usual: not at all 9. Thoughts that you would be better off or of hurting yourself in some way: not at all Total score: 0 Depression Screening Interpretation: Positive Depression Screening Follow-up: Existing condition and In treatment Depression Screening Done: Yes 24430 - PHQ-9 Billing: Yes Source: Developed by Drs. Ike Toledo, Colette Gutierrez, Alex Ingram and colleagues, with an educational gumaro from [employer]. Thrive Questionnaire Date Thrive assessed: 01/24/25 I am a: Patient What is your living situation today?: I have a steady place to live Within the past 12 months, did the food you bought not last and you didn't have the money to get more?: Never true Within the past 12 months, did you worry whether your food would run out before you got money to buy more?: Never true Do you have trouble paying for medicines?: No Do you have trouble getting transportation to medical appointments?: No Do you have trouble paying your heating and electricity bill?: No Do you have trouble taking care of your child, family member or friend?: No Do you have trouble with day-to-day activities such as bathing, preparing meals, shopping, managing finances, etc.?: No Are you currently unemployed and looking for a job?: No Are you interested in more education?: No Please select the resources that you would like help with: None Currently or been in a relationship where the following occur: No concerns reported THRIVE Score: 0 AUDIT C Alcohol Use Questionnaire (AUDIT-C) 1. How often do you have a drink containing alcohol?: Never 3. How often do you have six or more drinks on one occasion?: Never Total Score: 0 Score Reviewed/Action Taken: Yes MAGUI-7 AMB Questionnaire MAGUI-7 Date MAGUI - 7 assessed: 01/24/25 Feeling nervous, anxious, or on edge: 0 = Not at all Not being able to stop or control worryin = Not at all Worrying too much about different things: 0 = Not at all Trouble relaxin = Not at all Being so restless that it is hard to sit still: 0 = Not at all Becoming easily annoyed or irritable: 0 = Not at all Feeling afraid as if something awful might happen: 0 = Not at all Total MAGUI-7 score (0-4 normal; 5-9 mild; 10-14 moderate; 15-21 severe): 0 Source: Developed by Drs. Ike Toledo, Colette Gutierrez, Alex Ingram and colleagues, with an educational gumaro from [employer]. Review of Systems Const Denies chills, Reports fatigue, Denies fever(s) and Denies headache(s) ENT Denies dysphagia, Denies dizziness, Denies otalgia, Denies headache(s), Denies neck pain, Denies odynophagia and Denies sore throat Card Denies chest pain, Denies palpitations and Denies dyspnea Resp Denies chest congestion, Denies cough and Denies dyspnea GI Denies abdominal pain, Reports constipation (on and off), Denies dysphagia, Denies heartburn, Denies diarrhea, Denies nausea, Denies odynophagia and Denies vomiting Denies difficulty voiding, Reports nocturia (thinks that this is because she often drinks a lot of water), Denies dysuria and Denies urinary urgency Musc Reports back pain (over the lower back - chronic), Reports arthralgias (right shoulder) and Denies neck pain Skin/Breast Denies rash Neuro Denies dizziness and Denies headache(s) Psych Reports anxiety (better controlled on Rx) and Reports depression (better controlled on Rx) Endo Reports fatigue and Denies palpitations Physical exam (Primary Care) Vital Signs: Last Vital Signs Pulse 57 01/24/25 11:51 BP 122/68 01/24/25 11:51 Pulse Ox 97 01/24/25 11:51 Oxygen Delivery Method Room Air 01/24/25 11:51 BMI result Body Mass Index 32.0 Tobacco/Smoking Status: Tobacco use Status Tobacco use date assessed 01/24/25 01/24/25 12:00 Patient Tobacco Use Status Never used Tobacco 01/24/25 12:00 e-Cigarette/Vaping Use Never Used 01/24/25 12:00 PHQ-9: PHQ-9 Score PHQ-9: Total score 0 01/24/25 12:25 Depression Screening Interpretation: Positive Depression Screening Follow-up: Existing condition and In treatment Thrive Assessment: Date of Thrive Assessment Date Thrive assessed 01/24/25 01/24/25 12:00 Currently or been in a relationship where the following occur: No concerns reported Const General: no acute distress and alert HENMT Ears: TM's normal bilaterally and EAC's normal Throat: Yes posterior oropharynx normal and Yes tonsils normal (no TP congestion noted) Neck Neck: Yes no lymphadenopathy and Yes supple Thyroid: Thyroid normal Resp Auscultation: clear to auscultation bilaterally, no rales and no wheezes Cardio Rate: regular rate Rhythm: regular rhythm Heart sounds: Murmur heart sound present systolic soft, II/ and at the left sternal border GI Palpation (GI): Soft to palpation and nontender Auscultation: normal bowel sounds General: Yes no CVA tenderness Back/Spine/Pelvis Back: no CVA tenderness Thoracic/Lumbar Spine: lumbar spinal tenderness Skin Rashes: no rashes Extrem General: Yes no clubbing, cyanosis or edema Right upper extremity: shoulder/upper arm Details: tenderness Location: of the A-C joint Coding Level of Care Code Est Pt Level 4 (96521) Diagnoses Endometrial adenocarcinoma C54.1 Coronary artery disease involving [place] coronary artery of [place] heart without angina pectoris I25.10 Coronary Disease-Associated Artery/Lesion type: [place] artery [place] vs. transplanted heart: [place] heart Associated angina: without angina Pure hypercholesterolemia E78.00 Benign essential hypertension I10 GERD without esophagitis K21.9 Primary osteoarthritis of right shoulder M19.011 Insomnia, unspecified type G47.00 Insomnia type: unspecified Anxiety F41.9 Episode of recurrent major depressive disorder, unspecified depression episode severity F33.9 Depression Type: major depressive disorder Major depression recurrence: recurrent Active/Remission status: currently active Major depression episode severity: unspecified Hallucinations, visual R44.1 Obesity (BMI 30-39.9) E66.9 Additional Codes PHQ-9 - 06177 - PHQ-9 Billing: Yes ([id number]) Assessment & Plan Assessment & Plan (1) Endometrial adenocarcinoma: Comment: endometrioid type, FIGO grade 2 Code(s): C54.1 - Malignant neoplasm of endometrium Category: Medical Plan: Patient underwent robotic-assisted total laparoscopic hysterectomy, bilateral salpingo-oophorectomy, bilateral pelvic lymphadenectomy with Dr. Angela Orr at [facility] on 05/15/2024 She also completed her high dose rate (HDR) brachytherapy x 5 fractions last fall Follow up with gynecologic oncology and radiation oncology as scheduled (2) Coronary artery disease: Comment: S/P STEMI with stenting in July 2016 Code(s): I25.10 - Atherosclerotic heart disease of [place] coronary artery without angina pectoris Category: Medical Qualifiers: Coronary Disease-Associated Artery/Lesion type: [place] artery [place] vs. transplanted heart: [place] heart Associated angina: without angina Qualified Code(s): I25.10 - Atherosclerotic heart disease of [place] coronary artery without angina pectoris Plan: Patient remains asymptomatic from a cardiac standpoint Continue Aspirin 81 mg QD; she was taken off Clopidogrel 75 mg QD by cardiology last year Follow up with cardiology as scheduled (3) Pure hypercholesterolemia: Code(s): E78.00 - Pure hypercholesterolemia, unspecified Category: Medical Plan: She was not able to get her follow up labs done prior to her appointment today Reinforced low cholesterol diet Continue Rosuvastatin 40 mg QD Will recheck her labs and fasting lipids in 6 months for follow up - will just have patient use her current orders (updated) for her next lab draw (4) Benign essential hypertension: Code(s): I10 - Essential (primary) hypertension Category: Medical Plan: Reinforced low sodium diet - goal is systolic BP of at least 130 mm or less Continue Metoprolol ER 25 mg QD and Losartan 100 mg QD (5) GERD without esophagitis: Code(s): K21.9 - Gastro-esophageal reflux disease without esophagitis Category: Medical Plan: Dietary restrictions reinforced Continue Omeprazole 20 mg QD (6) Primary osteoarthritis of right shoulder: Code(s): M19.011 - Primary osteoarthritis, right shoulder Category: Medical Plan: Continue Percocet 5-325 mg 1 tablet every 12 hours as needed for pain - Rx refilled (7) Insomnia: Code(s): G47.00 - Insomnia, unspecified Category: Medical Qualifiers: Insomnia type: unspecified Qualified Code(s): G47.00 - Insomnia, unspecified Plan: Sleep hygiene reinforced She used to take Trazodone 50 mg 1/2 to 1 tablet Q HS PRN but has not needed to recently - states that Lorazepam helps when needed (8) Anxiety: Code(s): F41.9 - Anxiety disorder, unspecified Category: Medical Plan: Continue Lorazepam 0.5 mg Q HS PRN - Rx refilled She is no longer taking Buspirone 15 mg BID - Rx was discontinued by psychiatry (9) Depression: Comment: sees Dr. Bandar Calderon Code(s): F32.9 - Major depressive disorder, single episode, unspecified Category: Medical Qualifiers: Depression Type: major depressive disorder Major depression recurrence: recurrent Active/Remission status: currently active Major depression episode severity: unspecified Qualified Code(s): F33.9 - Major depressive disorder, recurrent, unspecified Plan: Continue Sertraline 200 mg QD Follow up with psychiatry (Dr. Calderon) as scheduled (10) Hallucinations, visual: Code(s): R44.1 - Visual hallucinations Category: Medical Plan: Continue Risperidone 0.5 mg Q HS PRN Follow up with psychiatry as scheduled (11) Obesity (BMI 30-39.9): Code(s): E66.9 - Obesity, unspecified Category: Medical Plan: Reinforced diet/exercise as tolerated/lose weight Plan Follow up in 6 months Medications: Refilled lorazepam 0.5 mg PO BEDTIME PRN 30 tabs 2RF sleep oxycodone-acetaminophen 5-325 mg (Percocet) 1 tab PO Q12H 28 days PRN 56 tabs 0RF pain M19.011 - Primary osteoarthritis, right shoulder
== END 2025-01-24 12:32 | disposition home or self-care (01) ==
LOC: HO.HMCH 11:49
PROVIDERS: PCP Internal Medicine; Visit Provider Internal Medicine
DX: I25.10 Atherosclerotic heart disease of native coronary artery without angina pectoris (principal); C54.1 Malignant neoplasm of endometrium; F33.9 Major depressive disorder, recurrent, unspecified; E78.00 Pure hypercholesterolemia, unspecified; I10 Essential (primary) hypertension; E66.9 Obesity, unspecified; Z68.32 Body mass index [BMI] 32.0-32.9, adult; K21.9 Gastro-esophageal reflux disease without esophagitis; M19.011 Primary osteoarthritis, right shoulder; G47.00 Insomnia, unspecified; F41.9 Anxiety disorder, unspecified; R44.1 Visual hallucinations

== ENCOUNTER → 2025-01-24 11:48 | Outpatient (BNVA) | payer MEDICARE, SELFPAY | PROVIDERS: PCP Internal Medicine; Visit Provider Internal Medicine | DX: C54.1 Malignant neoplasm of endometrium (principal); I25.10 Atherosclerotic heart disease of native coronary artery without angina pectoris; E78.00 Pure hypercholesterolemia, unspecified; I10 Essential (primary) hypertension; K21.9 Gastro-esophageal reflux disease without esophagitis; M19.011 Primary osteoarthritis, right shoulder; F41.9 Anxiety disorder, unspecified; F33.9 Major depressive disorder, recurrent, unspecified; R44.1 Visual hallucinations; E66.9 Obesity, unspecified; Z68.32 Body mass index [BMI] 32.0-32.9, adult; Z71.3 Dietary counseling and surveillance | CPT/HCPCS: 96127; 99212 ==

== ENCOUNTER 2025-07-22 09:32 | Outpatient (REF) | payer MEDICARE, SELFPAY ==
--- OUTSIDE RECORDS SUMMARY | 2025-07-22 11:15 | XMS_ITS | Patient Health Record ---
Author Organization [facility] Address [address] [place] [address] Care Team Providers Care Board Filler Name Role Phone Ghassan URIBE, [place] Primary Care Provider Ike Lou [phone] Allergies Allergen (clinical drug ingredient) Drug/Non Drug Allergy documented on EMR Reaction Allergy Type Onset Date Status Sulfa Unknown Drug Allergy Active Reason For Referral No Information Medications Medication SIG (Take, Route, Frequency, Duration) Notes Start Date End Date Status Colyte w Flavor Packs 240 GM as directed Orally as directed for 1 day(s) 11/07/2015 Active Ativan as needed Active Percocet 1 tablet as needed Orally 2 times a day as needed 1 per day for right shoulder pain Active Vitamin D Active Omeprazole Active Atorvastatin Calcium Active Lisinopril Active Zoloft Active Problems Problem Type SNOMED Code ICD Code Onset Dates Problem Status W/U Status Risk Notes Problem 65559159 Epigastric pain (R10.13) Active confirmed Problem [id number] Encounter for screening for malignant neoplasm of colon (Z12.11) Active confirmed Problem Screening for malignant neoplasm of rectum ([id number]) Encounter for screening for malignant neoplasm of rectum (Z12.12) Active confirmed Problem [id number] Gastroesophageal reflux disease, esophagitis presence not specified (K21.9) Active confirmed Plan Of Treatment Pending Test Test Name Order Date US ABD 07/13/2016 Future Test Test Name Order Date UPPER GI ENDOSCOPY 11/07/2015 COLONOSCOPY 11/07/2015 Insurance Providers Payer Name Payer Address Payer Phone Subscriber Number Group Number Insured Name Patient Relationship to Insured Coverage Start Date Coverage End Date MEDICARE OF [place] [address] [place] [address] [phone] [id number] ELBA QUINONES Self - patient is the insured [employer] ATT[employer] CLAIMS [address] [place] [phone] [id number] ELBA QUINONES Self - patient is the insured Medical (General) History Medical History History ICD Code Hypertension Hypercholesterolemia Depression Negative colonoscopy in 02/[address] Jarrett GERD-normal UGI in 2002 Denies HI,DM,CVA,Lung disease,renal dise ase Surgical History Surgery Date(Month/Year) Knee surgery-left Fatty tumor removed from back
[2025-07-22 12:58] LABS: MANUAL DIFF FLAG NO
[2025-07-22 13:05] LABS: Appearance Urine Clear; Glucose Urine UA Negative (Negative); PH 5.5 (5.0-9.0); Specific Gravity - Urine 1.020 (1.005-1.025); UMIC TRIGGER UACC YES
[2025-07-22 13:12] LABS: Hematocrit 39.4 % (37.0-47.0); Hemoglobin 13.2 g/dl (12.0-16.0); Imm Gran Abs Auto 0.01 X10*3/uL (0.00-0.03); Imm Gran Pct Auto 0.2 % (0.0-0.4); Lymphocytes Absolute Auto 0.9 X10*3/uL (1.2-4.9); Mean Corpuscular HGB Conc 33.5 g/dl (31.0-35.0); Mean Corpuscular Hemoglobin 29.8 pg (27.0-33.0); Mean Corpuscular Volume 88.9 fL (80.0-98.0); NRBC Abs Auto 0.000 X10*3/uL (0.0-0.012); NRBC Pct Auto 0.0 /100WBC (0.0-0.2); Platelet Count 128 X10*3/uL (160-400); Red Blood Count 4.43 X10*6/uL (4.20-5.50); White Blood Count 4.3 X10*3/uL (4.8-10.8)
[2025-07-22 13:23] LABS: UACC Culture Trigger YES
[2025-07-22 13:47] LABS: Alanine Aminotransferase 22 U/L (0-31); Albumin Level 4.8 g/dL (3.5-5.0); Alkaline Phosphatase 100 U/L (39-117); Anion Gap 10 (12-20); Aspartate Amino Transferase 27 U/L (5-31); Blood Urea Nitrogen 23 mg/dL (9-16); Calcium 9.5 mg/dL (8.4-10.2); Carbon Dioxide 30 mmol/L (22-29); Chloride 107 mmol/L (96-108); Cholesterol 126 mg/dL (<200); Estimated Glomerular Filt Rate 52; HDL Cholesterol 39 mg/dL (>40); Potassium 4.2 mmol/L (3.3-5.1); Sodium 143 mmol/L (135-145); Total Protein 7.0 g/dL (6.5-8.0); Triglycerides 127 mg/dL (<150)
== END 2025-07-22 09:33 | disposition home or self-care (01) ==
LOC: HO.HMGCLDS 09:32
PROVIDERS: PCP Internal Medicine; Visit Provider Internal Medicine
DX: E78.00 Pure hypercholesterolemia, unspecified (principal); D64.9 Anemia, unspecified; E55.9 Vitamin D deficiency, unspecified; R30.0 Dysuria
CPT/HCPCS: 36415; 80053; 80061; 81001; 81003; 82306; 84443; 85025; 87086

== ENCOUNTER 2025-07-29 13:30 | Outpatient (AMB) | payer MEDICARE, SELFPAY ==
[2025-07-29 13:32] VITALS: BP 122/80; PULSE 62; O2SAT 97; BMI 31.2
--- NOTE | 2025-07-29 13:32 | MHC.PC.OV ---
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 Accompanied by: Self / Same As Patient Allergies Sulfa (Sulfonamide Antibiotics) (SULFA(SULFONAMIDE ANTIBIOTICS)) Allergy (Intermediate, Verified 07/29/25 14:13) RASH methazolamide (From NEPTAZANE) Allergy (Unknown, Verified 07/29/25 14:13) RASH Neptazane Allergy (Unknown, Uncoded 07/29/25 14:13) unknown Medication List - Last Reconciled 07/29/25 by Wai Ferrell MD aspirin (Adult Aspirin Regimen) 81 mg PO DAILY lorazepam 0.5 mg PO BEDTIME PRN losartan 100 mg PO DAILY metoprolol succinate ER 25 mg PO DAILY omeprazole 20 mg PO DAILY oxycodone-acetaminophen 5-325 mg (Percocet) 1 tab PO Q12H PRN 28 days risperidone (Risperdal) 0.5 mg PO BEDTIME PRN rosuvastatin 40 mg PO DAILY sertraline 200 mg (2 x 100 mg) PO DAILY Tobacco use date assessed: 07/29/25 Fall risk assessment: 2 + Falls in past year Last assessed Fall Risk: 07/29/25 Dental Screening Dental Screen Date: 07/29/25 Did you have a dental visit in the last 12 months?: Yes Did you have a dental problem in the last 6 months where you did not have access to dental care?: No Was dental information given to patient?: Patient has dentist HPI 6 month f/u HPI Details Patient comes in today for her follow up visit States that she feels okay She denies any headaches or dizziness Denies any chest pains, no SOB No nausea/vomiting, no abdominal pain No change in bowel habits noted She continues to follow-up with her psychiatrist, Dr. Calderon, regularly for her depression and hallucinations and feels that she has been doing well and feels much better now that she was earlier this year Needs a couple of her Rx refilled, including her Percocet States that her chronic joint pains remain adequately controlled on her current Rx She had her follow up labs done last week - to discuss her results [facility] Medical History Endometrial adenocarcinoma Generalized anxiety disorder Ischemic cardiomyopathy GERD without esophagitis Obesity (BMI 30-39.9) Depression Anxiety Insomnia Primary osteoarthritis of right shoulder Benign essential hypertension Coronary artery disease Osteoarthritis of right shoulder STEMI (ST elevation myocardial infarction) Pure hypercholesterolemia Surgical History History of hysterectomy for malignancy S/P coronary artery stent placement (~07/2016) S/P excision of lipoma (~2000) S/P medial meniscectomy of left knee (~09/2012) Social History Housing: House Alcohol intake: never Patient Tobacco Use Status: Never used Tobacco e-Cigarette/Vaping Use: Never Used Second Hand Smoke Exposure: Yes service: No Current occupational status: retired Cognitive needs: No Hearing needs: No Vision needs: No Questionnaire PHQ-9 Over the last 2 weeks, how often have you been bothered by any of the following problems? 1. Little interest or pleasure in doing things: several days 2. Feeling down, depressed, or hopeless: not at all 3. Trouble falling or staying asleep, or sleeping too much: not at all 4. Feeling tired or having little energy: several days 5. Poor appetite or overeating: not at all 6. Feeling bad about yourself - or that you are a failure or have let yourself or your family down: several days 7. Trouble concentrating on things, such as reading the newspaper or watching television: not at all 8. Moving or speaking so slowly that other people could have noticed. Or the opposite - being so fidgety or restless that you have been moving around a lot more than usual: not at all 9. Thoughts that you would be better off or of hurting yourself in some way: not at all Total score: 3 Depression Screening Interpretation: Positive Depression Screening Follow-up: Existing condition and In treatment Depression Screening Done: Yes 37784 - PHQ-9 Billing: Yes Source: Developed by Drs. Ike Toledo, Colette Gutierrez, Alex Ingram and colleagues, with an educational gumaro from [employer]. Thrive Questionnaire Date Thrive assessed: 07/29/25 I am a: Patient What is your living situation today?: I have a steady place to live Within the past 12 months, did the food you bought not last and you didn't have the money to get more?: Never true Within the past 12 months, did you worry whether your food would run out before you got money to buy more?: Never true Do you have trouble paying for medicines?: No Do you have trouble getting transportation to medical appointments?: No Do you have trouble paying your heating and electricity bill?: No Do you have trouble taking care of your child, family member or friend?: No Do you have trouble with day-to-day activities such as bathing, preparing meals, shopping, managing finances, etc.?: No Are you currently unemployed and looking for a job?: Yes Are you interested in more education?: No Please select the resources that you would like help with: None Currently or been in a relationship where the following occur: No concerns reported THRIVE Score: 0 AUDIT C Alcohol Use Questionnaire (AUDIT-C) 1. How often do you have a drink containing alcohol?: Never 3. How often do you have six or more drinks on one occasion?: Never Total Score: 0 Score Reviewed/Action Taken: Yes MAGUI-7 AMB Questionnaire MAGUI-7 Date MAGUI - 7 assessed: 01/24/25 Feeling nervous, anxious, or on edge: 0 = Not at all Not being able to stop or control worryin = Not at all Worrying too much about different things: 1 = Several days Trouble relaxin = Not at all Being so restless that it is hard to sit still: 0 = Not at all Becoming easily annoyed or irritable: 0 = Not at all Feeling afraid as if something awful might happen: 1 = Several days Total MAGUI-7 score (0-4 normal; 5-9 mild; 10-14 moderate; 15-21 severe): 2 Source: Developed by Drs. Ike Toledo, Colette Gutierrez, Alex Ingram and colleagues, with an educational gumaro from [employer]. Review of Systems Const Denies chills, Reports fatigue, Denies fever(s) and Denies headache(s) ENT Denies dysphagia, Denies dizziness, Denies otalgia, Denies headache(s), Denies neck pain, Denies odynophagia and Denies sore throat Card Denies chest pain, Denies palpitations and Denies dyspnea Resp Denies chest congestion, Denies cough and Denies dyspnea GI Denies abdominal pain, Reports constipation (on and off), Denies dysphagia, Denies heartburn, Denies diarrhea, Denies nausea, Denies odynophagia and Denies vomiting Denies difficulty voiding, Reports nocturia (thinks that this is because she often drinks a lot of water), Denies dysuria and Denies urinary urgency Musc Reports back pain (over the lower back - chronic), Reports arthralgias (right shoulder) and Denies neck pain Skin/Breast Denies rash Neuro Denies dizziness and Denies headache(s) Psych Reports anxiety (better controlled on Rx) and Reports depression (better controlled on Rx) Endo Reports fatigue and Denies palpitations Physical exam (Primary Care) Vital Signs: Last Vital Signs Pulse 62 07/29/25 13:32 BP 122/80 07/29/25 13:32 Pulse Ox 97 07/29/25 13:32 Oxygen Delivery Method Room Air 07/29/25 13:32 BMI result Body Mass Index 31.2 Tobacco/Smoking Status: Tobacco use Status Tobacco use date assessed 07/29/25 07/29/25 13:38 Patient Tobacco Use Status Never used Tobacco 07/29/25 13:38 e-Cigarette/Vaping Use Never Used 07/29/25 13:38 PHQ-9: PHQ-9 Score PHQ-9: Total score 3 07/29/25 13:38 Depression Screening Interpretation: Positive Depression Screening Follow-up: Existing condition and In treatment Thrive Assessment: Date of Thrive Assessment Date Thrive assessed 01/24/25 07/29/25 13:38 Currently or been in a relationship where the following occur: No concerns reported Const General: no acute distress and alert HENMT Ears: TM's normal bilaterally and EAC's normal Throat: Yes posterior oropharynx normal and Yes tonsils normal (no TP congestion noted) Neck Neck: Yes no lymphadenopathy and Yes supple Thyroid: Thyroid normal Resp Auscultation: clear to auscultation bilaterally, no rales and no wheezes Cardio Rate: regular rate Rhythm: regular rhythm Heart sounds: Murmur heart sound present systolic soft, II/ and at the left sternal border GI Palpation (GI): Soft to palpation and nontender Auscultation: normal bowel sounds General: Yes no CVA tenderness Back/Spine/Pelvis Back: no CVA tenderness Thoracic/Lumbar Spine: lumbar spinal tenderness Skin Rashes: no rashes Extrem General: Yes no clubbing, cyanosis or edema Right upper extremity: shoulder/upper arm Details: tenderness Location: of the A-C joint Results Reviewed Results Reviewed: Laboratory Tests 07/22/25 09:43 WBC 4.3 L Hgb 13.2 Hct 39.4 Plt Count 128 L Sodium 143 Potassium 4.2 Creatinine 1.04 Estimated GFR 52 Fasting Glucose 111 H Calcium 9.5 AST 27 ALT 22 Triglycerides 127 Cholesterol 126 LDL Cholesterol, Calc 62 HDL Cholesterol 39 L 25-OH Vitamin D Total 69.2 TSH 3.03 Ur Specific [place] 1.020 Urine Protein Trace Urine Glucose (UA) Negative Urine Blood Moderate (2+) H Urine Nitrite Negative Ur Leukocyte Esterase Moderate (2+) H Coding Level of Care Code Est Pt Level 4 (57802) Diagnoses Coronary artery disease involving [place] coronary artery of [place] heart without angina pectoris I25.10 Coronary Disease-Associated Artery/Lesion type: [place] artery [place] vs. transplanted heart: [place] heart Associated angina: without angina Pure hypercholesterolemia E78.00 Benign essential hypertension I10 GERD without esophagitis K21.9 Primary osteoarthritis of right shoulder M19.011 Endometrial adenocarcinoma C54.1 Insomnia, unspecified type G47.00 Insomnia type: unspecified Anxiety F41.9 Episode of recurrent major depressive disorder, unspecified depression episode severity F33.9 Depression Type: major depressive disorder Major depression recurrence: recurrent Active/Remission status: currently active Major depression episode severity: unspecified Hallucinations, visual R44.1 Obesity (BMI 30-39.9) E66.9 Additional Codes PHQ-9 - 66615 - PHQ-9 Billing: Yes ([id number]) Assessment & Plan Assessment & Plan (1) Coronary artery disease: Comment: S/P STEMI with stenting in July 2016 Code(s): I25.10 - Atherosclerotic heart disease of [place] coronary artery without angina pectoris Category: Medical Qualifiers: Coronary Disease-Associated Artery/Lesion type: [place] artery [place] vs. transplanted heart: [place] heart Associated angina: without angina Qualified Code(s): I25.10 - Atherosclerotic heart disease of [place] coronary artery without angina pectoris Plan: Patient remains asymptomatic from a cardiac standpoint Continue Aspirin 81 mg QD; she was taken off Clopidogrel 75 mg QD by cardiology last year Follow up with cardiology as scheduled (2) Pure hypercholesterolemia: Code(s): E78.00 - Pure hypercholesterolemia, unspecified Category: Medical Plan: Results of her labs done last week reviewed and discussed with patient Reinforced low cholesterol diet Continue Rosuvastatin 40 mg QD Will recheck her labs and fasting lipids in 6 months for follow up (3) Benign essential hypertension: Code(s): I10 - Essential (primary) hypertension Category: Medical Plan: Reinforced low sodium diet - goal is systolic BP of at least 130 mm or less Continue Metoprolol ER 25 mg QD and Losartan 100 mg QD (4) GERD without esophagitis: Code(s): K21.9 - Gastro-esophageal reflux disease without esophagitis Category: Medical Plan: Dietary restrictions reinforced Continue Omeprazole 20 mg QD (5) Primary osteoarthritis of right shoulder: Code(s): M19.011 - Primary osteoarthritis, right shoulder Category: Medical Plan: Continue Percocet 5-325 mg 1 tablet every 12 hours as needed for pain - Rx refilled (6) Endometrial adenocarcinoma: Comment: endometrioid type, FIGO grade 2 Code(s): C54.1 - Malignant neoplasm of endometrium Category: Medical Plan: Patient underwent robotic-assisted total laparoscopic hysterectomy, bilateral salpingo-oophorectomy, bilateral pelvic lymphadenectomy with Dr. Angela Orr at [facility] on 05/15/2024 She also completed her high dose rate (HDR) brachytherapy x 5 fractions last fall Follow up with gynecologic oncology and radiation oncology as scheduled for continuing surveillance (7) Insomnia: Code(s): G47.00 - Insomnia, unspecified Category: Medical Qualifiers: Insomnia type: unspecified Qualified Code(s): G47.00 - Insomnia, unspecified Plan: Sleep hygiene reinforced She used to take Trazodone 50 mg 1/2 to 1 tablet Q HS PRN but has not needed to recently - states that Lorazepam helps when needed (8) Anxiety: Code(s): F41.9 - Anxiety disorder, unspecified Category: Medical Plan: Continue Lorazepam 0.5 mg Q HS PRN - Rx refilled She is no longer taking Buspirone 15 mg BID - Rx was discontinued by psychiatry (9) Depression: Comment: sees Dr. Bandar Calderon Code(s): F32.9 - Major depressive disorder, single episode, unspecified Category: Medical Qualifiers: Depression Type: major depressive disorder Major depression recurrence: recurrent Active/Remission status: currently active Major depression episode severity: unspecified Qualified Code(s): F33.9 - Major depressive disorder, recurrent, unspecified Plan: Continue Sertraline 200 mg QD Follow up with psychiatry (Dr. Calderon) as scheduled (10) Hallucinations, visual: Code(s): R44.1 - Visual hallucinations Category: Medical Plan: Continue Risperidone 0.5 mg Q HS PRN Follow up with psychiatry as scheduled (11) Obesity (BMI 30-39.9): Code(s): E66.9 - Obesity, unspecified Category: Medical Plan: Reinforced diet/exercise as tolerated/lose weight Plan Follow up in 6 months Orders: Orders Complete Blood Count Auto Diff 6 Months D64.9 - Anemia, unspecified Comprehensive [place]. Panel Fast 6 Months E78.00 - Pure hypercholesterolemia, unspecified UA CC w/rflx Micro + Cult 6 Months R30.0 - Dysuria Lipid Panel 6 Months E78.00 - Pure hypercholesterolemia, unspecified TSH reflex Free T4 6 Months E78.00 - Pure hypercholesterolemia, unspecified Vitamin D 25-OH Total 6 Months E55.9 - Vitamin D deficiency, unspecified Hemoglobin A1c 6 Months R73.01 - Impaired fasting glucose Medications: Refilled oxycodone-acetaminophen 5-325 mg (Percocet) 1 tab PO Q12H PRN 56 tabs 0RF pain 28 days M19.011 - Primary osteoarthritis, right shoulder lorazepam 0.5 mg PO BEDTIME PRN 30 tabs 2RF sleep
--- OUTSIDE RECORDS SUMMARY | 2025-07-29 15:02 | XMS_ITS | Patient Health Record ---
Author Organization [facility] Address [address] [place] [address] Care Team Providers Care Warehouse Operator Name Role Phone Ghassan URIBE, [place] Primary Care Provider Ike Lou [phone] Allergies Allergen (clinical drug ingredient) Drug/Non Drug [...] Problem Status W/U Status Risk Notes Problem [id number] Epigastric pain (R10.13) Active confirmed Problem [id number] Encounter for screening for malignant neoplasm of colon (Z12.11) Active confirmed Problem Screening for malignant neoplasm of rectum ([id number]) Encounter for screening for malignant neoplasm of rectum (Z12.12) Active confirmed Problem [id number] Gastroesophageal reflux disease, esophagitis presence not specified (K21.9) Active confirmed Plan Of Treatment Pending Test Test Name Order Date US ABD 07/13/2016 Future Test Test Name Order Date UPPER GI ENDOSCOPY 11/07/2015 COLONOSCOPY 11/07/2015 Insurance Providers Payer Name Payer Address Payer Phone Subscriber Number Group Number Insured Name Patient Relationship to Insured Coverage Start Date Coverage End Date MEDICARE OF [place] [address] [place] [address] [id number] ELBA QUINONES Self - patient is the insured [employer] CLAIMS [address] [place] [address] [id number] ELBA QUINONES Self - patient is the insured Medical (General) History Medical History History ICD Code Hypertension Hypercholesterolemia Depression Negative colonoscopy in 02/[address] Jarrett GERD-normal UGI in 2002 Denies ID,DM,CVA,Lung disease,renal dise ase Surgical History Surgery Date(Month/Year) Knee surgery-left Fatty tumor removed from back
== END 2025-07-29 14:37 | disposition home or self-care (01) ==
LOC: HO.HMCH 13:31
PROVIDERS: PCP Internal Medicine; Visit Provider Internal Medicine
DX: I25.10 Atherosclerotic heart disease of native coronary artery without angina pectoris (principal); E78.00 Pure hypercholesterolemia, unspecified; C54.1 Malignant neoplasm of endometrium; E66.9 Obesity, unspecified; Z68.31 Body mass index [BMI] 31.0-31.9, adult; I10 Essential (primary) hypertension; K21.9 Gastro-esophageal reflux disease without esophagitis; M19.011 Primary osteoarthritis, right shoulder; G47.00 Insomnia, unspecified; F41.9 Anxiety disorder, unspecified; F33.9 Major depressive disorder, recurrent, unspecified; R44.1 Visual hallucinations

== ENCOUNTER → 2025-07-29 13:30 | Outpatient (BNVA) | payer MEDICARE, SELFPAY | PROVIDERS: PCP Internal Medicine; Visit Provider Internal Medicine | DX: I25.10 Atherosclerotic heart disease of native coronary artery without angina pectoris (principal); E78.00 Pure hypercholesterolemia, unspecified; I10 Essential (primary) hypertension; K21.9 Gastro-esophageal reflux disease without esophagitis; M19.011 Primary osteoarthritis, right shoulder; C54.1 Malignant neoplasm of endometrium; G47.00 Insomnia, unspecified; F41.9 Anxiety disorder, unspecified; F33.9 Major depressive disorder, recurrent, unspecified; R44.1 Visual hallucinations; E66.9 Obesity, unspecified; Z68.31 Body mass index [BMI] 31.0-31.9, adult | CPT/HCPCS: 96127; 99212 ==

== ENCOUNTER 2025-10-03 11:04 | Outpatient (AMB) | payer MEDICARE, SELFPAY ==
--- NOTE | 2025-10-03 12:00 | MHC.OFFVISPS ---
Intake Intake Visit Reasons: depression Allergies Sulfa (Sulfonamide Antibiotics) (SULFA(SULFONAMIDE ANTIBIOTICS)) Allergy (Intermediate, Verified 07/29/25 14:13) RASH methazolamide (From NEPTAZANE) Allergy (Unknown, Verified 07/29/25 14:13) RASH Neptazane Allergy (Unknown, Uncoded 07/29/25 14:13) unknown HPI- Psychiatric Chief Complaint: depression HPI Narrative: Pt seen in f/u mood she states has been stable living alone gets limited support.Has on regular occassiions had experiences where she experiences visual [place] in the evening that she knows is not real but multiple visions of people no aud [place] . Patient with some difficulty at times with short-term memory not getting lost state she has been able to cook clean keep up with her house. Some difficulty at times processing information. Past Psychiatric History: hx depression anxiety son few yrs ago accidental overdose Mental Status Exam Mental Status Exam Narrative: Mental Status Exam Narrative: Patient is casually dressed appropriate in manner good eye contact. Her speech is clear and generally goal-directed. Her mood is described as okay her affect appropriate. Content is focused on visual hallucinations she experiences when she goes to bed at nite in a mirror across from he r bed at night. year month day date floor place. Denies any wandering or confusional state she does describe more anxiety at night prior to sleep. Denies SI denies auditory hallucination On exam no movement no tremor no rigidity on exam of her upper extremities. Patient was alert she knew she was seeing her psychiatrist she knew she had history of depression denied ongoing panic attacks no hallucinations or delusional material Assessment and Plan Assessment & Plan (1) Generalized anxiety disorder: Status: Acute Code(s): F41.1 - Generalized anxiety disorder (2) Hallucinations, visual: Status: Acute Code(s): R44.1 - Visual hallucinations Plan Patient having visual hallucinations in the evening question consistent with [place] has some difficulty with orientation attention and executive function. Would benefit from neuropsych eval and neurology eval. B12 folate MR of the brain ordered unclear if patient has a healthcare proxy which would be potentially useful in this situation. She is planning on eventually moving in with her son in [place]. Patient was pleasant minimal use of lorazepam. For hallucination seem more formed and not just pre and during sleep no gross focal findings. Initially seemed part of major depression with psychotic features at the of her now does not seem consistent with her presentation at this point Orders: Orders Vitamin B12 and Folate 10/03/25 F09 - Unspecified mental disorder due to known physiological condition MR maria luisa cheung neuroquant 10/03/25 F41.1 - Generalized anxiety disorder, R44.1 - Visual hallucinations, I25.10 - Atherosclerotic heart disease of [place] coronary artery without angina pectoris Counseling and coordination of Care Details-Self Mgmt counseling: Discussed what services might be helpful and beneficial to the patient. Encourage senior center Discussed cooperation with medical workup patient aware that what she is experiencing is not normal or routine Medication management counseling: Effectiveness and Side effects Details-Med Mgmt counseling: Stop Risperdal would not be beneficial if [place] body Diagnosis and Prognosis Counseling: Accuracy of diagnosis, Impact of diagnosis on life functions and Adequacy of current interventions Details: I spent [38] minutes reviewing the record, seeing the patient and documenting in the medical record. Counseling provided to the patient/caregiver as outlined below. Addressed patient/caregiver concerns regarding current medication regime including effective adherence. Addressed patient/caregiver concerns regarding diagnosis and prognosis including accuracy of diagnosis, prognosis over time, impact of diagnosis. Addressed patient/caregiver concerns regarding impact of recent stressors. [facility] Medical History Endometrial adenocarcinoma Generalized anxiety disorder Ischemic cardiomyopathy GERD without esophagitis Obesity (BMI 30-39.9) Depression Anxiety Insomnia Primary osteoarthritis of right shoulder Benign essential hypertension Coronary artery disease Osteoarthritis of right shoulder STEMI (ST elevation myocardial infarction) Pure hypercholesterolemia Surgical History History of hysterectomy for malignancy S/P coronary artery stent placement (~07/2016) S/P excision of lipoma (~2000) S/P medial meniscectomy of left knee (~09/2012) Social History Housing: House Alcohol intake: never Patient Tobacco Use Status: Never used Tobacco e-Cigarette/Vaping Use: Never Used Second Hand Smoke Exposure: Yes service: No Current occupational status: retired Cognitive needs: No Hearing needs: No Vision needs: No Social History: 3 children 1 h has copd Substance History: hx alcohol abuse Trauma History: of son Coding Level of Care Code Est Pt Level 4 (31620) Diagnoses Generalized anxiety disorder F41.1 Hallucinations, visual R44.1
== END 2025-10-03 11:12 | disposition home or self-care (01) ==
LOC: HO.HOP 11:04
PROVIDERS: PCP Internal Medicine; Visit Provider Psychiatry & Neurology Psychiatry
DX: F41.1 Generalized anxiety disorder (principal); R44.1 Visual hallucinations
CPT/HCPCS: 99214

== ENCOUNTER → 2025-10-03 11:04 | Outpatient (BNVA) | payer MEDICARE, SELFPAY | PROVIDERS: PCP Internal Medicine; Visit Provider Psychiatry & Neurology Psychiatry | DX: F41.1 Generalized anxiety disorder (principal); R44.1 Visual hallucinations | CPT/HCPCS: 99212 ==